=== PATIENT | male | born 1970 | race Caucasian/White ===

== ENCOUNTER 2017-06-13 11:40 | Inpatient (IN) | payer OTHER ==
[2017-06-13 11:57] VITALS: BMI 24.1
--- NOTE | 2017-06-13 13:38 | HP ---
CIWA Score - CIWA Score Nausea/Vomitin Muscle Tremors: 3 Anxiety: 3 Agitation: 3 Paroxysmal Sweats: 2 Orientation: 0-Oriented Tacttile Disturbances: 2-Mild Itch/Numbness/Burn Auditory Disturbances: 2-Mild Harshness/Frighten Visual Disturbances: 0-None Headache: 2-Mild CIWA-Ar Total Score: 20 Admission ROS BHS - HPI Chief Complaint: i need help to stop drinking alcohol and cocaine Allergies/Adverse Reactions: Allergies Allergy/AdvReac Type Severity Reaction Status Date / Time No Known Drug Allergies Allergy Verified 06/13/17 12:51 nuts Allergy Intermediate Difficulty Uncoded 06/13/17 12:51 Breathing tomato sauce Allergy Intermediate Difficulty Uncoded 06/13/17 12:51 Breathing History of Present Illness: this 47 years old male with alcohol and ccoaine dependence,seeking detox, withdrawal symptom,last treatment 2009 [facility] seizure last 1980 syncope alcohol related nicotine dependence weight loss bipolar disorder,anxiety,depression,insomnia longest period of sobriety 10 years Exam Limitations: No Limitations - Ebola screening Have you been sick,other than usual withdrawal symptoms: No - Review of Systems Constitutional: Loss of Appetite, Malaise, Night Sweats, Changes in sleep, Weakness, Unintentional Wgt. Loss EENT: reports: Nose Congestion Respiratory: reports: No Symptoms reported Cardiac: reports: No Symptoms Reported GI: reports: Nausea, Vomiting, Abdominal cramping : reports: No Symptoms Reported Musculoskeletal: reports: Muscle Pain Integumentary: reports: Dryness Neuro: reports: Headache, Tremors Endocrine: reports: No Symptoms Reported Hematology: reports: No Symptoms Reported Psychiatric: reports: Anxious, Depressed (bipolar disorder,insomnia), other Patient History - Patient Medical History Hx Anemia: No Hx Asthma: No Hx Chronic Obstructive Pulmonary Disease (COPD): No Hx Cancer: No Hx Cardiac Disorders: No Hx Congestive Heart Failure: No Hx Hypertension: No Hx Hypercholesterolemia: No Hx Pacemaker: No HX Cerebrovascular Accident: No Hx Seizures: No Hx Dementia: No Hx Diabetes: No Hx Gastrointestinal Disorders: No Hx Liver Disease: No Hx Genitourinary Disorders: No Hx Sexually Transmitted Disorders: No Hx Renal Disease (ESRD): No Hx Thyroid Disease: No Hx Human Immunodeficiency Virus (HIV): Yes (since 2009) Hx Hepatitis C: No Hx Depression: No Hx Suicide Attempt: No Hx Bipolar Disorder: Yes Hx Schizophrenia: No Other Medical History: anxiety,depression,insomnia,no homicidal,no suicidal - Patient Surgical History Past Surgical History: No - PPD History Previous Implant?: Yes Documented Results: Negative w/proof Implanted On Prior R Admission?: No PPD to be Administered?: No - Smoking Cessation Smoking history: Current every day smoker Have you smoked in the past 12 months: Yes Aproximately how many cigarettes per day: 10 Hx Chewing Tobacco Use: No Initiated information on smoking cessation: Yes 'Breaking Loose' booklet given: 06/13/17 - Substance & Tx. History Hx Alcohol Use: Yes Hx Substance Use: Yes Substance Use Type: Alcohol, Cocaine Hx Substance Use Treatment: Yes (last treatment in 2009) - Substances Abused Alcohol Route: Oral Frequency: Daily Amount used: vodka(2/)/beer(-2 6 pks-24 oz cans) Age of first use: 11 Date of Last Use: 06/13/17 Cocaine Route: Inhalation Frequency: 3-6 times per week Amount used: $30 Age of first use: 27 Date of Last Use: 06/10/17 Family Disease History - Family Disease History Family Disease History: Other: Mother (alcohol,) Admission Physical Exam BHS - Vital Signs Vital Signs: Vital Signs - 24 hr 06/13/17 11:53 Temperature 97 F L Pulse Rate 90 Respiratory 18 Rate Blood Pressure 121/65 - Physical General Appearance: Yes: Moderate Distress HEENTM: Yes: Normal ENT Inspection, CHAO, Pharynx Normal Respiratory: Yes: Lungs Clear, Normal Breath Sounds, No Respiratory Distress Neck: Yes: Within Normal Limits Breast: Yes: Within Normal Limits Cardiology: Yes: Within Normal Limits, Regular Rhythm, Regular Rate, S1, S2 Abdominal: Yes: Within Normal Limits, Normal Bowel Sounds, Non Tender, Flat, Soft Genitourinary: Yes: Within Normal Limits Back: Yes: Normal Inspection, Muscle Spasm Musculoskeletal: Yes: Back pain, Muscle Pain Extremities: Yes: Tremors 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 (7) Insomnia Current Visit: Yes Status: Acute Cleared for Admission BHS - Detox or Rehab [facility] Level of Care: Medically Managed Detox Regimen/Protocol: Librium BHS Breath Alcohol Content Breath Alcohol Content: 0.117 Urine Drug Screen - Results Drug Screen Negative: No Urine Drug Screen Results: JUAN F-Cocaine
[2017-06-13] MEDS ORDERED: hydrOXYzine PAMOATE 50 MG CAPSULE (FP) PO PRN (13:51)
[2017-06-13] MEDS ORDERED: MAGNESIUM HYDROX 2400MG/30ML ORAL SUSPENSION 30 ML CUP PO PRN (13:51)
[2017-06-13] MEDS ORDERED: guaiFENesin/D-METHORPHAN HB 10 ML UNIT-DOSE CUPS PO PRN (13:51)
[2017-06-13] MEDS ORDERED: MAG HYDROX/AL HYDROX/SIMETH 30 ML UNIT-DOSE CUP PO PRN (13:51)
[2017-06-13] MEDS ORDERED: MENTHOL/PHENOL 1 EACH UD MM PRN (13:51)
[2017-06-13] MEDS ORDERED: IBUPROFEN 400 MG TABLET (FP) PO PRN (13:51)
[2017-06-13] MEDS ORDERED: ACETAMINOPHEN 325 MG TABLET (FP) PO PRN (13:51)
[2017-06-13] MEDS ORDERED: LOPERAMIDE HCL 2 MG CAPSULE PO PRN (13:51)
[2017-06-13] MEDS ORDERED: MAGNESIUM CITRATE 300 ML BOTTLE PO PRN (13:51)
[2017-06-13] MEDS ORDERED: P-EPHED 60MG/TRIPROLIDI 2.5MG TABLET PO PRN (13:51)
[2017-06-13] MEDS ORDERED: chlordiazePOXIDE HCL 25 MG CAPSULE PO ONE (14:09)
[2017-06-13] MEDS: NICOTINE 21 MG/24 HOURS TOPICAL PATCH TD SCH (15:26)
--- NOTE | 2017-06-13 16:49 | CONSULT ---
[facility] Psychiatric Consult - Data Date of interview: 06/13/17 Admission source: [facility] Identifying data: Pt. 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 This is patient's first admission to [facility]. Pt. admitted to [facility] for alcohol and cocaine dependence. Substance Abuse History: Following information confirmed with Mr. Gabriel: Smoking Cessation. Smoking history: Current every day smoker. Have you smoked in the past 12 months: Yes. Aproximately how many cigarettes per day: 10. Hx Chewing Tobacco Use: No. Initiated information on smoking cessation: Yes. ' Breaking Loose' booklet given: 06/13/17. - Substance & Tx. History. Hx Alcohol Use: Yes. Hx Substance Use: Yes. Substance Use Type: Alcohol, Cocaine. Hx Substance Use Treatment: Yes (last treatment in 2009) Medical History: HIV Psychiatric History: Pt. denies h/o psychatric hospitalization. Reports OPC at [facility] for 8 years. Pt. is currently prescribed seroquel 200mg, Zoloft 100mg and trazodone 150mg but reports nonadherence to his medications. States his diagnosis are Bipolar disorder, anxiety, and schizophrenia. Pt. denies h/o suicide attempt. Pt. denies suicidal and homicidal ideation. Pt. requesting trazodone for insomnia. Physical/Sexual Abuse/Trauma History: Denies. Mental Status Exam - Mental Status Exam Alert and Oriented to: Time, Place, Person Cognitive Function: Good Patient Appearance: Unkempt Mood: Anxious Affect: Normal Range Patient Behavior: Talkative, Cooperative Speech Pattern: Pressured Voice Loudness: Normal Thought Process: Goal Oriented Thought Disorder: Not Present Hallucinations: Denies Suicidal Ideation: Denies Homicidal Ideation: Denies Insight/Judgement: Poor Sleep: Poorly Appetite: Fair Muscle strength/Tone: Normal Gait/Station: Normal Psychiatric Findings - Problem List ([place] 1, 2,3) (1) Alcohol dependence with uncomplicated withdrawal Current Visit: Yes Status: Acute (2) Cocaine dependence Current Visit: Yes Status: Acute (3) Insomnia Current Visit: Yes Status: Acute (4) Nicotine dependence Current Visit: Yes Status: Acute (5) Schizophrenia Current Visit: No Status: Chronic Comment: Self reports. (6) Bipolar disorder Current Visit: No Status: Chronic Comment: Self reports. - Initial Treatment Plan Initial Treatment Plan: Psychoeducation provided. Detoxification in progress. Trazodone 50mg qhs ordered. Benefits and side effects (priapism) discussed. Verbal consent given. Will continue to monitor.
[2017-06-13] MEDS: chlordiazePOXIDE HCL 25 MG CAPSULE PO SCH ×2 (17:37→22:18)
[2017-06-13] MEDS: THIAMINE HCL 100 MG TABLET (FP) PO SCH (22:18)
[2017-06-13] MEDS: traZODone HCL 50 MG TABLET (FP) PO SCH (22:18)
[2017-06-13 23:17] LABS: URINE APPEARANCE CLEAR; URINE BILIRUBIN NEGATIVE (NEGATIVE); URINE BLOOD 1+ (NEGATIVE); URINE COLOR COLORLESS; URINE GLUCOSE (UA) NEGATIVE (NEGATIVE); URINE KETONE NEGATIVE (NEGATIVE); URINE LEUK ESTERASE NEGATIVE (NEGATIVE); URINE NITRITE NEGATIVE (NEGATIVE); URINE PROTEIN NEGATIVE (NEGATIVE); URINE UROBILINOGEN NEGATIVE mg/dL (0.2-1.0)
[2017-06-14] MEDS: chlordiazePOXIDE HCL 25 MG CAPSULE PO SCH ×4 (05:15→22:17)
[2017-06-14] MEDS ORDERED: SERTRALINE HCL 50 MG TABLET (FP) PO SCH (10:00)
[2017-06-14 10:02] LABS: HEMATOCRIT 46.5 % (35.4-49); HEMOGLOBIN 15.1 GM/dL (11.7-16.9); MCH 30.6 pg (25.7-33.7); MCHC 32.5 g/dl (32.0-35.9); MEAN CELL VOLUME 93.9 fl (80-96); MEAN PLT VOLUME 8.2 fl (7.5-11.1); PLATELET COUNT 306 K/MM3 (134-434); RBC 4.95 M/mm3 (4.00-5.60); RDW 13.6 % (11.9-15.9); WHITE BLOOD COUNT 8.8 K/mm3 (4.0-10.0)
[2017-06-14] MEDS: PRENATAL VITAMINS W/ FOLIC ACID TABLET (FP) PO SCH (10:14)
[2017-06-14] MEDS: NICOTINE 21 MG/24 HOURS TOPICAL PATCH TD SCH (10:15)
[2017-06-14] MEDS: PATIENT'S OWN MEDICATION (NON-FORMULARY) (Emtricitabine/Tenofov Alafenam [Descovy 200-25 M PO SCH (10:15)
[2017-06-14 10:18] LABS: ALBUMIN 4.3 g/dl (3.4-5.0); ANION GAP 14 (8-16); BLOOD UREA NITROGEN 7 mg/dL (7-18); CALCIUM 9.5 mg/dL (8.5-10.1); CHLORIDE 104 mmol/L (98-107); CO2 23 mmol/L (21-32); CREATININE 0.8 mg/dL (0.7-1.3); GLUCOSE,RANDOM 93 mg/dL (74-106); POTASSIUM 4.3 mmol/L (3.5-5.1); SGOT/AST 35 U/L (15-37); SGPT/ALT 37 U/L (12-78); SODIUM 141 mmol/L (136-145)
[2017-06-14 10:20] LABS: ALK PHOS 63 U/L (45-117); BILIRUBIN,TOTAL 0.4 mg/dL (0.2-1.0); TOT PROT 8.4 g/dl (6.4-8.2)
--- NOTE | 2017-06-14 10:56 | PN ---
[facility] CIWA - CIWA Score Nausea/Vomitin-No Nausea/No Vomiting Muscle Tremors: 4-Moderate,w/Arms Extend Anxiety: 4-Mod. Anxious/Guarded Agitation: 4-Moderately Restless Paroxysmal Sweats: 1-Minimal Palms Moist Orientation: 0-Oriented Tacttile Disturbances: 3-Moderate Itch/Numb/Burn Auditory Disturbances: 0-None Visual Disturbances: 0-None Headache: 0-None Present CIWA-Ar Total Score: 16 BHS Progress Note (SOAP) Subjective: ANXIETY,SWEATS,FATIGUE. Objective: 06/14/17 11:03 Vital Signs Temperature 97.2 F L 06/14/17 09:50 Pulse Rate 88 06/14/17 09:50 Respiratory Rate 18 06/14/17 09:50 Blood Pressure 117/75 06/14/17 09:50 O2 Sat by Pulse Oximetry (%) Laboratory Last Values WBC 8.8 K/mm3 (4.0-10.0) 06/14/17 05:45 RBC 4.95 M/mm3 (4.00-5.60) 06/14/17 05:45 Hgb 15.1 GM/dL (11.7-16.9) 06/14/17 05:45 Hct 46.5 % (35.4-49) 06/14/17 05:45 MCV 93.9 fl (80-96) 06/14/17 05:45 MCH 30.6 pg (25.7-33.7) 06/14/17 05:45 MCHC 32.5 g/dl (32.0-35.9) 06/14/17 05:45 RDW 13.6 % (11.9-15.9) 06/14/17 05:45 Plt Count 306 K/MM3 (134-434) 06/14/17 05:45 MPV 8.2 fl (7.5-11.1) 06/14/17 05:45 Sodium 141 mmol/L (136-145) 06/14/17 05:45 Potassium 4.3 mmol/L (3.5-5.1) 06/14/17 05:45 Chloride 104 mmol/L (98-107) 06/14/17 05:45 Carbon Dioxide 23 mmol/L (21-32) 06/14/17 05:45 Anion Gap 14 (8-16) 06/14/17 05:45 BUN 7 mg/dL (7-18) 06/14/17 05:45 Creatinine 0.8 mg/dL (0.7-1.3) 06/14/17 05:45 Creat Clearance w eGFR > 60 (>60) 06/14/17 05:45 Random Glucose 93 mg/dL (74-106) 06/14/17 05:45 Calcium 9.5 mg/dL (8.5-10.1) 06/14/17 05:45 Total Bilirubin 0.4 mg/dL (0.2-1.0) 06/14/17 05:45 AST 35 U/L (15-37) 06/14/17 05:45 ALT 37 U/L (12-78) 06/14/17 05:45 Alkaline Phosphatase 63 U/L (45-117) 06/14/17 05:45 Total Protein 8.4 g/dl (6.4-8.2) H 06/14/17 05:45 Albumin 4.3 g/dl (3.4-5.0) 06/14/17 05:45 Urine Color Colorless 06/13/17 21:00 Urine Appearance Clear 06/13/17 21:00 Urine pH 6.0 (5.0-8.0) 06/13/17 21:00 Ur Specific [place] 1.002 (1.001-1.035) 06/13/17 21:00 Urine Protein Negative (NEGATIVE) 06/13/17 21:00 Urine Glucose (UA) Negative (NEGATIVE) 06/13/17 21:00 Urine Ketones Negative (NEGATIVE) 06/13/17 21:00 Urine Blood 1+ (NEGATIVE) H 06/13/17 21:00 Urine Nitrite Negative (NEGATIVE) 06/13/17 21:00 Urine Bilirubin Negative (NEGATIVE) 06/13/17 21:00 Urine Urobilinogen Negative mg/dL (0.2-1.0) 06/13/17 21:00 Ur Leukocyte Esterase Negative (NEGATIVE) 06/13/17 21:00 Urine WBC (Auto) None /hpf (3-5) 06/13/17 21:00 Urine RBC (Auto) <1 /hpf (0-3) 06/13/17 21:00 Assessment: 06/14/17 11:03 WITHDRAWAL SX Plan: CONTINUE DETOX
[2017-06-14] MEDS: chlordiazePOXIDE HCL 25 MG CAPSULE PO PRN (15:15)
[2017-06-14] MEDS: traZODone HCL 50 MG TABLET (FP) PO SCH (22:16)
[2017-06-14] MEDS: THIAMINE HCL 100 MG TABLET (FP) PO SCH (22:17)
[2017-06-15] MEDS: chlordiazePOXIDE HCL 25 MG CAPSULE PO SCH ×2 (05:50→10:20)
[2017-06-15] MEDS: PRENATAL VITAMINS W/ FOLIC ACID TABLET (FP) PO SCH (10:19)
[2017-06-15] MEDS: PATIENT'S OWN MEDICATION (NON-FORMULARY) (Emtricitabine/Tenofov Alafenam [Descovy 200-25 M PO SCH (10:19)
[2017-06-15] MEDS: NICOTINE 21 MG/24 HOURS TOPICAL PATCH TD SCH (10:19)
--- NOTE | 2017-06-15 10:49 | PN ---
S CIWA - CIWA Score Nausea/Vomitin Muscle Tremors: 3 Anxiety: 2 Agitation: 2 Paroxysmal Sweats: 3 Orientation: 0-Oriented Tacttile Disturbances: 1-Very Mild Itch/Numbness Auditory Disturbances: 1-Very Mild Visual Disturbances: 1-Very Mild Sensitivity Headache: 2-Mild CIWA-Ar Total Score: 18 BHS Progress Note (SOAP) Subjective: Shakes, sweats, chills,diarrhea, back pain Objective: 06/15/17 10:45 Vital Signs - 8 hr 06/15/17 06/15/17 06/15/17 03:27 06:24 09:10 Temperature 97.3 F L 96.9 F L Pulse Rate 67 79 Respiratory 18 18 18 Rate Blood Pressure 114/68 93/55 Laboratory Last Values WBC 8.8 K/mm3 (4.0-10.0) 06/14/17 05:45 RBC 4.95 M/mm3 (4.00-5.60) 06/14/17 05:45 Hgb 15.1 GM/dL (11.7-16.9) 06/14/17 05:45 Hct 46.5 % (35.4-49) 06/14/17 05:45 MCV 93.9 fl (80-96) 06/14/17 05:45 MCH 30.6 pg (25.7-33.7) 06/14/17 05:45 MCHC 32.5 g/dl (32.0-35.9) 06/14/17 05:45 RDW 13.6 % (11.9-15.9) 06/14/17 05:45 Plt Count 306 K/MM3 (134-434) 06/14/17 05:45 MPV 8.2 fl (7.5-11.1) 06/14/17 05:45 Sodium 141 mmol/L (136-145) 06/14/17 05:45 Potassium 4.3 mmol/L (3.5-5.1) 06/14/17 05:45 Chloride 104 mmol/L (98-107) 06/14/17 05:45 Carbon Dioxide 23 mmol/L (21-32) 06/14/17 05:45 Anion Gap 14 (8-16) 06/14/17 05:45 BUN 7 mg/dL (7-18) 06/14/17 05:45 Creatinine 0.8 mg/dL (0.7-1.3) 06/14/17 05:45 Creat Clearance w eGFR > 60 (>60) 06/14/17 05:45 Random Glucose 93 mg/dL (74-106) 06/14/17 05:45 Calcium 9.5 mg/dL (8.5-10.1) 06/14/17 05:45 Total Bilirubin 0.4 mg/dL (0.2-1.0) 06/14/17 05:45 AST 35 U/L (15-37) 06/14/17 05:45 ALT 37 U/L (12-78) 06/14/17 05:45 Alkaline Phosphatase 63 U/L (45-117) 06/14/17 05:45 Total Protein 8.4 g/dl (6.4-8.2) H 06/14/17 05:45 Albumin 4.3 g/dl (3.4-5.0) 06/14/17 05:45 Urine Color Colorless 06/13/17 21:00 Urine Appearance Clear 06/13/17 21:00 Urine pH 6.0 (5.0-8.0) 06/13/17 21:00 Ur Specific [place] 1.002 (1.001-1.035) 06/13/17 21:00 Urine Protein Negative (NEGATIVE) 06/13/17 21:00 Urine Glucose (UA) Negative (NEGATIVE) 06/13/17 21:00 Urine Ketones Negative (NEGATIVE) 06/13/17 21:00 Urine Blood 1+ (NEGATIVE) H 06/13/17 21:00 Urine Nitrite Negative (NEGATIVE) 06/13/17 21:00 Urine Bilirubin Negative (NEGATIVE) 06/13/17 21:00 Urine Urobilinogen Negative mg/dL (0.2-1.0) 06/13/17 21:00 Ur Leukocyte Esterase Negative (NEGATIVE) 06/13/17 21:00 Urine WBC (Auto) None /hpf (3-5) 06/13/17 21:00 Urine RBC (Auto) <1 /hpf (0-3) 06/13/17 21:00 RPR Titer Nonreactive (NONREACTIVE) 06/14/17 05:45 Labs noted Assessment: 06/15/17 10:46 Withdrawal sx Plan: Continue detox
[2017-06-15] MEDS: chlordiazePOXIDE HCL 25 MG CAPSULE PO PRN (14:27)
--- NOTE | 2017-06-15 17:12 | EKG ---
Test Reason : Blood Pressure : / mmHG Vent. Rate : 085 BPM Atrial Rate : 085 BPM P-R Int : 140 ms QRS Dur : 090 ms QT Int : 366 ms P-R-T Axes : 044 042 052 degrees QTc Int : 435 ms NORMAL SINUS RHYTHM POSSIBLE LEFT ATRIAL ENLARGEMENT BORDERLINE ECG NO PREVIOUS ECGS AVAILABLE Confirmed by KRYS ENRIQUEZ MD ([id number]) on 06/15/2017 5:12:15 PM Referred By: Confirmed By:KRYS ENRIQUEZ MD
[2017-06-15] MEDS: chlordiazePOXIDE 5 MG CAPSULE PO SCH ×2 (17:44→22:23)
[2017-06-15] MEDS: CLOTRIMAZOLE 10 MG TROCHE (FP) PO SCH (22:23)
[2017-06-15] MEDS: THIAMINE HCL 100 MG TABLET (FP) PO SCH (22:23)
[2017-06-15] MEDS: traZODone HCL 50 MG TABLET (FP) PO SCH (22:23)
[2017-06-16] MEDS: CLOTRIMAZOLE 10 MG TROCHE (FP) PO SCH ×5 (06:04→22:18)
[2017-06-16] MEDS: chlordiazePOXIDE 5 MG CAPSULE PO SCH ×2 (06:04→10:12)
[2017-06-16] MEDS: PATIENT'S OWN MEDICATION (NON-FORMULARY) (Emtricitabine/Tenofov Alafenam [Descovy 200-25 M PO SCH (10:11)
[2017-06-16] MEDS: PRENATAL VITAMINS W/ FOLIC ACID TABLET (FP) PO SCH (10:12)
[2017-06-16] MEDS: NICOTINE 21 MG/24 HOURS TOPICAL PATCH TD SCH (10:13)
--- NOTE | 2017-06-16 14:38 | PN ---
BHS Progress Note (SOAP) Subjective: Back pain sweats tremors Objective: 06/16/17 14:37 no acute distress Laboratory Last Values WBC 8.8 K/mm3 (4.0-10.0) 06/14/17 05:45 RBC 4.95 M/mm3 (4.00-5.60) 06/14/17 05:45 Hgb 15.1 GM/dL (11.7-16.9) 06/14/17 05:45 Hct 46.5 % (35.4-49) 06/14/17 05:45 MCV 93.9 fl (80-96) 06/14/17 05:45 MCH 30.6 pg (25.7-33.7) 06/14/17 05:45 MCHC 32.5 g/dl (32.0-35.9) 06/14/17 05:45 RDW 13.6 % (11.9-15.9) 06/14/17 05:45 Plt Count 306 K/MM3 (134-434) 06/14/17 05:45 MPV 8.2 fl (7.5-11.1) 06/14/17 05:45 Sodium 141 mmol/L (136-145) 06/14/17 05:45 Potassium 4.3 mmol/L (3.5-5.1) 06/14/17 05:45 Chloride 104 mmol/L (98-107) 06/14/17 05:45 Carbon Dioxide 23 mmol/L (21-32) 06/14/17 05:45 Anion Gap 14 (8-16) 06/14/17 05:45 BUN 7 mg/dL (7-18) 06/14/17 05:45 Creatinine 0.8 mg/dL (0.7-1.3) 06/14/17 05:45 Creat Clearance w eGFR > 60 (>60) 06/14/17 05:45 Random Glucose 93 mg/dL (74-106) 06/14/17 05:45 Calcium 9.5 mg/dL (8.5-10.1) 06/14/17 05:45 Total Bilirubin 0.4 mg/dL (0.2-1.0) 06/14/17 05:45 AST 35 U/L (15-37) 06/14/17 05:45 ALT 37 U/L (12-78) 06/14/17 05:45 Alkaline Phosphatase 63 U/L (45-117) 06/14/17 05:45 Total Protein 8.4 g/dl (6.4-8.2) H 06/14/17 05:45 Albumin 4.3 g/dl (3.4-5.0) 06/14/17 05:45 Urine Color Colorless 06/13/17 21:00 Urine Appearance Clear 06/13/17 21:00 Urine pH 6.0 (5.0-8.0) 06/13/17 21:00 Ur Specific [place] 1.002 (1.001-1.035) 06/13/17 21:00 Urine Protein Negative (NEGATIVE) 06/13/17 21:00 Urine Glucose (UA) Negative (NEGATIVE) 06/13/17 21:00 Urine Ketones Negative (NEGATIVE) 06/13/17 21:00 Urine Blood 1+ (NEGATIVE) H 06/13/17 21:00 Urine Nitrite Negative (NEGATIVE) 06/13/17 21:00 Urine Bilirubin Negative (NEGATIVE) 06/13/17 21:00 Urine Urobilinogen Negative mg/dL (0.2-1.0) 06/13/17 21:00 Ur Leukocyte Esterase Negative (NEGATIVE) 06/13/17 21:00 Urine WBC (Auto) None /hpf (3-5) 06/13/17 21:00 Urine RBC (Auto) <1 /hpf (0-3) 06/13/17 21:00 RPR Titer Nonreactive (NONREACTIVE) 06/14/17 05:45 Assessment: 06/16/17 14:37 withdrawal symptoms Plan: continue detox
[2017-06-16] MEDS: chlordiazePOXIDE HCL 10 MG CAPSULE PO SCH ×2 (17:23→22:18)
[2017-06-16] MEDS: traZODone HCL 50 MG TABLET (FP) PO SCH (22:18)
[2017-06-16] MEDS: THIAMINE HCL 100 MG TABLET (FP) PO SCH (22:18)
[2017-06-17] MEDS: chlordiazePOXIDE HCL 10 MG CAPSULE PO SCH ×2 (05:21→10:07)
[2017-06-17] MEDS: CLOTRIMAZOLE 10 MG TROCHE (FP) PO SCH ×3 (05:21→13:01)
[2017-06-17 09:22] VITALS: BP 108/70; PULSE 83; TEMP 96.3
[2017-06-17] MEDS: PRENATAL VITAMINS W/ FOLIC ACID TABLET (FP) PO SCH (10:05)
[2017-06-17] MEDS: PATIENT'S OWN MEDICATION (NON-FORMULARY) (Emtricitabine/Tenofov Alafenam [Descovy 200-25 M PO SCH (10:06)
[2017-06-17] MEDS: NICOTINE 21 MG/24 HOURS TOPICAL PATCH TD SCH (10:07)
--- NOTE | 2017-06-17 12:25 | DS ---
[facility] Detox Discharge Summary Admission Date: 06/13/17 Discharge Date: 06/17/17 - History Present History: Alcohol Dependence, Cocaine Dependence Additional Comments: DETOX COMPLETED. ALERT O X 3. REFERRED TO REHAB 3 [facility] TODAY. Pertinent Past History: SEE DX BELOW. - Physical Exam Results Vital Signs: Vital Signs Temperature 96.3 F L 06/17/17 09:21 Pulse Rate 83 06/17/17 09:21 Respiratory Rate 18 06/17/17 09:21 Blood Pressure 108/70 06/17/17 09:21 O2 Sat by Pulse Oximetry (%) Pertinent Admission Physical Exam Findings: WITHDRAWAL SX Laboratory Last Values WBC 8.8 K/mm3 (4.0-10.0) 06/14/17 05:45 RBC 4.95 M/mm3 (4.00-5.60) 06/14/17 05:45 Hgb 15.1 GM/dL (11.7-16.9) 06/14/17 05:45 Hct 46.5 % (35.4-49) 06/14/17 05:45 MCV 93.9 fl (80-96) 06/14/17 05:45 MCH 30.6 pg (25.7-33.7) 06/14/17 05:45 MCHC 32.5 g/dl (32.0-35.9) 06/14/17 05:45 RDW 13.6 % (11.9-15.9) 06/14/17 05:45 Plt Count 306 K/MM3 (134-434) 06/14/17 05:45 MPV 8.2 fl (7.5-11.1) 06/14/17 05:45 Sodium 141 mmol/L (136-145) 06/14/17 05:45 Potassium 4.3 mmol/L (3.5-5.1) 06/14/17 05:45 Chloride 104 mmol/L (98-107) 06/14/17 05:45 Carbon Dioxide 23 mmol/L (21-32) 06/14/17 05:45 Anion Gap 14 (8-16) 06/14/17 05:45 BUN 7 mg/dL (7-18) 06/14/17 05:45 Creatinine 0.8 mg/dL (0.7-1.3) 06/14/17 05:45 Creat Clearance w eGFR > 60 (>60) 06/14/17 05:45 Random Glucose 93 mg/dL (74-106) 06/14/17 05:45 Calcium 9.5 mg/dL (8.5-10.1) 06/14/17 05:45 Total Bilirubin 0.4 mg/dL (0.2-1.0) 06/14/17 05:45 AST 35 U/L (15-37) 06/14/17 05:45 ALT 37 U/L (12-78) 06/14/17 05:45 Alkaline Phosphatase 63 U/L (45-117) 06/14/17 05:45 Total Protein 8.4 g/dl (6.4-8.2) H 06/14/17 05:45 Albumin 4.3 g/dl (3.4-5.0) 06/14/17 05:45 Urine Color Colorless 06/13/17 21:00 Urine Appearance Clear 06/13/17 21:00 Urine pH 6.0 (5.0-8.0) 06/13/17 21:00 Ur Specific [place] 1.002 (1.001-1.035) 06/13/17 21:00 Urine Protein Negative (NEGATIVE) 06/13/17 21:00 Urine Glucose (UA) Negative (NEGATIVE) 06/13/17 21:00 Urine Ketones Negative (NEGATIVE) 06/13/17 21:00 Urine Blood 1+ (NEGATIVE) H 06/13/17 21:00 Urine Nitrite Negative (NEGATIVE) 06/13/17 21:00 Urine Bilirubin Negative (NEGATIVE) 06/13/17 21:00 Urine Urobilinogen Negative mg/dL (0.2-1.0) 06/13/17 21:00 Ur Leukocyte Esterase Negative (NEGATIVE) 06/13/17 21:00 Urine WBC (Auto) None /hpf (3-5) 06/13/17 21:00 Urine RBC (Auto) <1 /hpf (0-3) 06/13/17 21:00 RPR Titer Nonreactive (NONREACTIVE) 06/14/17 05:45 - Treatment Hospital Course: Detox Protocol Followed, Detoxed Safely, Responded well, Discharged Condition Good, Rehab Referral Accepted - Medication Discharge Medications: Ambulatory Orders Emtricitabine/Tenofov Alafenam [Descovy 200-25 mg Tablet (Nf)] 1 each PO DAILY 06/13/17 Clotrimazole [Mycelex -] 10 mg PO 5XD #20 isaiah 06/17/17 - Diagnosis (1) Alcohol dependence with uncomplicated withdrawal Status: Acute (2) Cocaine dependence Status: Acute Qualifiers: Substance use status: uncomplicated Qualified Code(s): F14.20 - Cocaine dependence, uncomplicated (3) HIV (human immunodeficiency virus infection) Status: Chronic (4) Nicotine dependence Status: Acute Qualifiers: Nicotine product type: cigarettes Substance use status: uncomplicated Qualified Code(s): F17.210 - Nicotine dependence, cigarettes, uncomplicated (5) Seizure Status: Chronic (6) Weight loss Status: Acute - AMA Did Patient Leave Against Medical Advice: No
== END 2017-06-17 13:06 | disposition other institution (70) | DRG 774 ==
LOC: YASAS 11:40 → Y3N 14:03
PROVIDERS: ADMIT Internal Medicine; ATTEND Internal Medicine
PROC: HZ2ZZZZ Detoxification Services for Substance Abuse Treatment (ICD-10-PCS; principal; 2017-06-13)
DX: F14.20 Cocaine dependence, uncomplicated (principal); F17.210 Nicotine dependence, cigarettes, uncomplicated; F31.9 Bipolar disorder, unspecified; F20.9 Schizophrenia, unspecified; Z21 Asymptomatic human immunodeficiency virus [HIV] infection status; G47.00 Insomnia, unspecified; Z86.69 Personal history of other diseases of the nervous system and sense organs; Z87.898 Personal history of other specified conditions; Z91.010 Allergy to peanuts
CPT/HCPCS: 36415; 80053; 81003; 81015; 85027; 86593; 93005; 93010

== ENCOUNTER 2017-06-17 13:23 | Inpatient (IN) | payer OTHER ==
[2017-06-17] MEDS ORDERED: LOPERAMIDE HCL 2 MG CAPSULE PO PRN (16:26)
[2017-06-17] MEDS ORDERED: MAGNESIUM HYDROX 2400MG/30ML ORAL SUSPENSION 30 ML CUP PO PRN (16:26)
[2017-06-17] MEDS ORDERED: MENTHOL/PHENOL 1 EACH UD MM PRN (16:26)
[2017-06-17] MEDS ORDERED: MAGNESIUM CITRATE 300 ML BOTTLE PO PRN (16:26)
[2017-06-17] MEDS ORDERED: NICOTINE POLACRILEX 2 MG GUM BUC PRN (16:26)
[2017-06-17] MEDS ORDERED: guaiFENesin/D-METHORPHAN HB 10 ML UNIT-DOSE CUPS PO PRN (16:26)
[2017-06-17] MEDS ORDERED: P-EPHED 60MG/TRIPROLIDI 2.5MG TABLET PO PRN (16:26)
[2017-06-17] MEDS ORDERED: MAG HYDROX/AL HYDROX/SIMETH 30 ML UNIT-DOSE CUP PO PRN (16:26)
--- NOTE | 2017-06-17 16:26 | HP ---
[facility] Re[facility] Assess/Revision - Admission History Admitted to Rehab from: [facility] Date of Admission to Rehab: 06/17/17 - Findings Detox History & Physical reviewed: Yes Concur with findings: Yes Comments/Additional Findings: TRANSFERRED FROM DETOX TO REHAB ADMISSION PER PROTOCOL
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
[2017-06-18] MEDS: PRENATAL VITAMINS W/ FOLIC ACID TABLET (FP) PO SCH (09:39)
[2017-06-18] MEDS ORDERED: EMTRICITABINE/TENOFOV ALAFENAM (DESCOVY) TABLET PO SCH (10:00)
[2017-06-18] MEDS: ACETAMINOPHEN 325 MG TABLET (FP) PO PRN (15:09)
[2017-06-18] MEDS: THIAMINE HCL 100 MG TABLET (FP) PO SCH ×2 (18:38→21:33)
[2017-06-18] MEDS: EMTRICITABINE/TENOFOV ALAFENAM (DESCOVY) TABLET PO SCH (18:39)
[2017-06-18] MEDS: SERTRALINE HCL 50 MG TABLET (FP) PO SCH (18:39)
[2017-06-18] MEDS: traZODone HCL 50 MG TABLET (FP) PO SCH (21:33)
[2017-06-19] MEDS: SERTRALINE HCL 50 MG TABLET (FP) PO SCH (10:00)
[2017-06-19] MEDS: PRENATAL VITAMINS W/ FOLIC ACID TABLET (FP) PO SCH (10:00)
[2017-06-19] MEDS: NICOTINE 14 MG/24 HOURS TOPICAL PATCH TD PRN (10:01)
[2017-06-19] MEDS: EMTRICITABINE/TENOFOV ALAFENAM (DESCOVY) TABLET PO SCH (10:01)
[2017-06-19] MEDS: CLOTRIMAZOLE 10 MG TROCHE (FP) PO SCH ×3 (14:49→21:43)
[2017-06-19] MEDS ORDERED: NYSTATIN 500,000 UNITS/5 ML SUSPENSION PO SCH (18:00)
[2017-06-19] MEDS: CARBAMIDE PEROXIDE 6.5% OTIC 15 ML BOTTLE AD SCH (21:42)
[2017-06-19] MEDS: traZODone HCL 50 MG TABLET (FP) PO SCH (21:44)
[2017-06-19] MEDS: THIAMINE HCL 100 MG TABLET (FP) PO SCH (22:18)
[2017-06-20] MEDS: CLOTRIMAZOLE 10 MG TROCHE (FP) PO SCH ×5 (06:17→21:10)
[2017-06-20] MEDS: PRENATAL VITAMINS W/ FOLIC ACID TABLET (FP) PO SCH (10:05)
[2017-06-20] MEDS: SERTRALINE HCL 50 MG TABLET (FP) PO SCH (10:05)
[2017-06-20] MEDS: CARBAMIDE PEROXIDE 6.5% OTIC 15 ML BOTTLE AD SCH ×2 (10:06→21:10)
[2017-06-20] MEDS: EMTRICITABINE/TENOFOV ALAFENAM (DESCOVY) TABLET PO SCH (10:07)
[2017-06-20] MEDS: NICOTINE 14 MG/24 HOURS TOPICAL PATCH TD PRN (10:08)
[2017-06-20] MEDS: THIAMINE HCL 100 MG TABLET (FP) PO SCH (21:10)
[2017-06-20] MEDS: traZODone HCL 50 MG TABLET (FP) PO SCH (21:10)
[2017-06-21] MEDS: CLOTRIMAZOLE 10 MG TROCHE (FP) PO SCH ×5 (07:24→21:33)
[2017-06-21] MEDS: PRENATAL VITAMINS W/ FOLIC ACID TABLET (FP) PO SCH (10:14)
[2017-06-21] MEDS: EMTRICITABINE/TENOFOV ALAFENAM (DESCOVY) TABLET PO SCH (10:15)
[2017-06-21] MEDS: CARBAMIDE PEROXIDE 6.5% OTIC 15 ML BOTTLE AD SCH ×2 (10:15→21:31)
[2017-06-21] MEDS: SERTRALINE HCL 50 MG TABLET (FP) PO SCH (10:15)
[2017-06-21] MEDS: NICOTINE 14 MG/24 HOURS TOPICAL PATCH TD PRN (10:17)
[2017-06-21] MEDS: THIAMINE HCL 100 MG TABLET (FP) PO SCH (21:30)
[2017-06-21] MEDS: traZODone HCL 50 MG TABLET (FP) PO SCH (21:31)
[2017-06-22] MEDS: CLOTRIMAZOLE 10 MG TROCHE (FP) PO SCH ×5 (06:39→21:20)
[2017-06-22] MEDS: SERTRALINE HCL 50 MG TABLET (FP) PO SCH (10:04)
[2017-06-22] MEDS: EMTRICITABINE/TENOFOV ALAFENAM (DESCOVY) TABLET PO SCH (10:04)
[2017-06-22] MEDS: PRENATAL VITAMINS W/ FOLIC ACID TABLET (FP) PO SCH (10:04)
[2017-06-22] MEDS: CARBAMIDE PEROXIDE 6.5% OTIC 15 ML BOTTLE AD SCH ×2 (10:04→21:22)
[2017-06-22] MEDS: NICOTINE 14 MG/24 HOURS TOPICAL PATCH TD PRN (10:05)
[2017-06-22] MEDS: THIAMINE HCL 100 MG TABLET (FP) PO SCH (21:20)
[2017-06-22] MEDS: traZODone HCL 50 MG TABLET (FP) PO SCH (21:20)
[2017-06-23] MEDS: CLOTRIMAZOLE 10 MG TROCHE (FP) PO SCH ×5 (06:55→21:48)
[2017-06-23] MEDS: SERTRALINE HCL 50 MG TABLET (FP) PO SCH (09:55)
[2017-06-23] MEDS: EMTRICITABINE/TENOFOV ALAFENAM (DESCOVY) TABLET PO SCH (09:55)
[2017-06-23] MEDS: PRENATAL VITAMINS W/ FOLIC ACID TABLET (FP) PO SCH (09:55)
[2017-06-23] MEDS: NICOTINE 14 MG/24 HOURS TOPICAL PATCH TD PRN (09:56)
[2017-06-23] MEDS: CARBAMIDE PEROXIDE 6.5% OTIC 15 ML BOTTLE AD SCH ×2 (11:00→21:50)
[2017-06-23] MEDS: traZODone HCL 50 MG TABLET (FP) PO SCH (21:48)
[2017-06-23] MEDS: THIAMINE HCL 100 MG TABLET (FP) PO SCH (21:48)
[2017-06-24] MEDS: CLOTRIMAZOLE 10 MG TROCHE (FP) PO SCH ×6 (06:40→21:49)
[2017-06-24] MEDS: PRENATAL VITAMINS W/ FOLIC ACID TABLET (FP) PO SCH (09:54)
[2017-06-24] MEDS: EMTRICITABINE/TENOFOV ALAFENAM (DESCOVY) TABLET PO SCH (09:54)
[2017-06-24] MEDS: SERTRALINE HCL 50 MG TABLET (FP) PO SCH (09:54)
[2017-06-24] MEDS: CARBAMIDE PEROXIDE 6.5% OTIC 15 ML BOTTLE AD SCH ×2 (09:55→21:50)
[2017-06-24] MEDS: NICOTINE 14 MG/24 HOURS TOPICAL PATCH TD PRN (09:56)
[2017-06-24] MEDS: ACETAMINOPHEN 325 MG TABLET (FP) PO PRN (19:48)
[2017-06-24] MEDS: THIAMINE HCL 100 MG TABLET (FP) PO SCH (21:49)
[2017-06-24] MEDS: traZODone HCL 50 MG TABLET (FP) PO SCH (21:49)
[2017-06-25] MEDS: CLOTRIMAZOLE 10 MG TROCHE (FP) PO SCH ×5 (06:56→22:25)
[2017-06-25] MEDS: CARBAMIDE PEROXIDE 6.5% OTIC 15 ML BOTTLE AD SCH ×2 (10:04→21:15)
[2017-06-25] MEDS: PRENATAL VITAMINS W/ FOLIC ACID TABLET (FP) PO SCH (10:04)
[2017-06-25] MEDS: SERTRALINE HCL 50 MG TABLET (FP) PO SCH (10:04)
[2017-06-25] MEDS: EMTRICITABINE/TENOFOV ALAFENAM (DESCOVY) TABLET PO SCH (10:04)
[2017-06-25] MEDS: traZODone HCL 50 MG TABLET (FP) PO SCH (21:14)
[2017-06-25] MEDS: THIAMINE HCL 100 MG TABLET (FP) PO SCH (21:14)
[2017-06-26] MEDS: CLOTRIMAZOLE 10 MG TROCHE (FP) PO SCH ×5 (06:42→21:44)
[2017-06-26] MEDS: EMTRICITABINE/TENOFOV ALAFENAM (DESCOVY) TABLET PO SCH (10:03)
[2017-06-26] MEDS: PRENATAL VITAMINS W/ FOLIC ACID TABLET (FP) PO SCH (10:03)
[2017-06-26] MEDS: SERTRALINE HCL 50 MG TABLET (FP) PO SCH (10:03)
[2017-06-26] MEDS: CARBAMIDE PEROXIDE 6.5% OTIC 15 ML BOTTLE AD SCH (10:04)
[2017-06-26] MEDS: NICOTINE 14 MG/24 HOURS TOPICAL PATCH TD PRN (10:05)
[2017-06-26] MEDS: IBUPROFEN 400 MG TABLET (FP) PO PRN ×2 (14:24→21:43)
[2017-06-26] MEDS: THIAMINE HCL 100 MG TABLET (FP) PO SCH (21:42)
[2017-06-26] MEDS: traZODone HCL 50 MG TABLET (FP) PO SCH (21:42)
[2017-06-27] MEDS: CLOTRIMAZOLE 10 MG TROCHE (FP) PO SCH ×5 (06:43→21:38)
[2017-06-27] MEDS: NICOTINE 14 MG/24 HOURS TOPICAL PATCH TD PRN (09:59)
[2017-06-27] MEDS: PRENATAL VITAMINS W/ FOLIC ACID TABLET (FP) PO SCH (09:59)
[2017-06-27] MEDS: EMTRICITABINE/TENOFOV ALAFENAM (DESCOVY) TABLET PO SCH (09:59)
[2017-06-27] MEDS: SERTRALINE HCL 50 MG TABLET (FP) PO SCH (09:59)
[2017-06-27] MEDS: IBUPROFEN 400 MG TABLET (FP) PO PRN (15:59)
[2017-06-27] MEDS: THIAMINE HCL 100 MG TABLET (FP) PO SCH (21:36)
[2017-06-27] MEDS: traZODone HCL 50 MG TABLET (FP) PO SCH (21:36)
[2017-06-27] MEDS: CARBAMIDE PEROXIDE 6.5% OTIC 15 ML BOTTLE AU SCH (21:38)
[2017-06-28] MEDS: CLOTRIMAZOLE 10 MG TROCHE (FP) PO SCH ×5 (05:52→21:50)
[2017-06-28] MEDS: SERTRALINE HCL 50 MG TABLET (FP) PO SCH (10:09)
[2017-06-28] MEDS: PRENATAL VITAMINS W/ FOLIC ACID TABLET (FP) PO SCH (10:09)
[2017-06-28] MEDS: CARBAMIDE PEROXIDE 6.5% OTIC 15 ML BOTTLE AU SCH ×2 (10:10→21:50)
[2017-06-28] MEDS: EMTRICITABINE/TENOFOV ALAFENAM (DESCOVY) TABLET PO SCH (10:10)
[2017-06-28] MEDS: NICOTINE 14 MG/24 HOURS TOPICAL PATCH TD PRN (10:13)
[2017-06-28] MEDS ORDERED: AMMONIUM LACTATE 12% LOTION 225 GM BOTTLE TP PRN (13:31)
[2017-06-28] MEDS ORDERED: COLLOIDAL OATMEAL 1 BAR EACH TP PRN (13:31)
[2017-06-28] MEDS: IBUPROFEN 400 MG TABLET (FP) PO PRN (13:48)
[2017-06-28] MEDS: THIAMINE HCL 100 MG TABLET (FP) PO SCH (21:49)
[2017-06-28] MEDS: traZODone HCL 50 MG TABLET (FP) PO SCH (21:49)
[2017-06-29] MEDS: CLOTRIMAZOLE 10 MG TROCHE (FP) PO SCH ×5 (06:10→22:34)
[2017-06-29] MEDS: EMTRICITABINE/TENOFOV ALAFENAM (DESCOVY) TABLET PO SCH (09:47)
[2017-06-29] MEDS: CARBAMIDE PEROXIDE 6.5% OTIC 15 ML BOTTLE AU SCH ×2 (09:47→21:46)
[2017-06-29] MEDS: PRENATAL VITAMINS W/ FOLIC ACID TABLET (FP) PO SCH (09:47)
[2017-06-29] MEDS: SERTRALINE HCL 50 MG TABLET (FP) PO SCH (09:47)
[2017-06-29] MEDS: NICOTINE 14 MG/24 HOURS TOPICAL PATCH TD PRN (09:48)
[2017-06-29] MEDS: IBUPROFEN 400 MG TABLET (FP) PO PRN (15:17)
[2017-06-29] MEDS: THIAMINE HCL 100 MG TABLET (FP) PO SCH (21:44)
[2017-06-29] MEDS: traZODone HCL 50 MG TABLET (FP) PO SCH (21:44)
[2017-06-30] MEDS: CLOTRIMAZOLE 10 MG TROCHE (FP) PO SCH ×5 (05:58→22:27)
[2017-06-30] MEDS: EMTRICITABINE/TENOFOV ALAFENAM (DESCOVY) TABLET PO SCH (09:48)
[2017-06-30] MEDS: SERTRALINE HCL 50 MG TABLET (FP) PO SCH (09:48)
[2017-06-30] MEDS: PRENATAL VITAMINS W/ FOLIC ACID TABLET (FP) PO SCH (09:49)
[2017-06-30] MEDS: NICOTINE 14 MG/24 HOURS TOPICAL PATCH TD PRN (09:49)
[2017-06-30] MEDS: CARBAMIDE PEROXIDE 6.5% OTIC 15 ML BOTTLE AU SCH ×2 (10:06→22:26)
--- NOTE | 2017-06-30 13:31 | PN ---
Psychiatric Progress Note Vital Signs: Vital Signs Period Temp Pulse Resp BP Sys/Franco Pulse Ox Last 24 Hr 97.4 F 80 16-18 115/76 Date of Session: 06/30/17 Chief Complaint:: Discharge Note HPI: Patient addressing Alcohol and Cocaine Dependence comorbid with Nicotine Dependence, Schizoaffective Disorder, Substance-induced Mood Disorder and Substance-induced Sleep Disorder ROS: Seizure Disorder, HIV were medically managed Current Medications: Active Medications Generic Name Dose Route Start Last Admin Trade Name Freq PRN Reason Stop Dose Admin Acetaminophen 650 mg 06/17/17 16:26 06/24/17 19:48 Tylenol - PO 650 mg Q4H PRN Administration FEVER Al Hydroxide/Mg Hydroxide 30 ml 06/17/17 16:26 Mylanta Oral Suspension - PO Q6H PRN DYSPEPSIA Carbamide Perox/Anhydrous Glycerin 5 drop 06/27/17 22:00 06/30/17 10:06 Debrox - AU 5 drop BID [place] Administration Clotrimazole 10 mg 06/19/17 14:00 06/30/17 09:49 Mycelex Tammie's - PO 10 mg 5XD [place] Administration Colloidal Oatmeal 1 applic 06/28/17 13:31 Aveeno Soap - TP DAILY PRN HYGEINE Eucalyptus/Menthol/Phenol/Sorbitol 1 each 06/17/17 16:26 Cepastat Lozenge - MM Q4H PRN SORE THROAT Guaifenesin 10 ml 06/17/17 16:26 Robitussin Dm - PO Q6H PRN COUGH Ibuprofen 400 mg 06/17/17 16:26 06/29/17 15:17 Motrin - PO 400 mg Q6H PRN Administration Pain Level 4-6 Lactic Acid 1 applic 06/28/17 13:31 Lac-Hydrin 12 TP BID PRN DRY SKIN Loperamide HCl 4 mg 06/17/17 16:26 Imodium - PO Q6H PRN DIARRHEA Magnesium Citrate 300 ml 06/17/17 16:26 Citroma - PO Q48H PRN CONSTIPATION Magnesium Hydroxide 30 ml 06/17/17 16:26 Milk Of Magnesia - PO DAILY PRN CONSTIPATION Nicotine 14 mg 06/17/17 16:26 06/30/17 09:49 Nicoderm Patch - TD 14 mg DAILY PRN Administration WITHDRAWAL(CONT SUBST) Nicotine Polacrilex 2 mg 06/17/17 16:26 Nicorette Gum - BUC Q2H PRN NICOTINE REPLACEMENT RX Multivit/Folic Acid/Iron 1 tab 06/18/17 10:00 06/30/17 09:49 Vitamins (Sjr) - PO 1 tab DAILY [place] Administration Pseudoephedrine/Triprolidine 1 combo 06/17/17 16:26 Actifed - PO TID PRN NASAL CONGESTION Sertraline HCl 50 mg 06/18/17 10:45 06/30/17 09:48 Zoloft - PO 50 mg DAILY [place] Administration Thiamine HCl 100 mg 06/17/17 22:00 06/29/17 21:44 Vitamin B1 - PO 100 mg HS [place] Administration Trazodone HCl 150 mg 06/18/17 22:00 06/29/17 21:44 Desyrel - PO 150 mg HS [place]NA Administration Current Side Effect: No Lab tests ordered: Yes Lab tests reviewed: Yes Provider note:: Patient will complete this program on 07/01/17. He has met his treatment goals and will continue to address his issues in outpatient treatment at [facility] at [address] [place] [address] . Told leader writer that from his participation in this program, he has learned the importance of making meetings and having a sponsor. He responded well to Zoloft 50 mg po daily and Trazadone 150 mg po HS. Scripts for 30 days supply of medications will be electronically transmitted to [facility] at [address] [place] [address]. He is stable for discharge on 07/01/17 Total face to face time:: 35 Mental Status Exam - Mental Status Exam Alert and Oriented to: Time, Place, Person Cognitive Function: Fair Patient Appearance: Well Groomed Mood: Hopeful, Euthymic Affect: Appropriate Patient Behavior: Cooperative Speech Pattern: Clear Voice Loudness: Normal Thought Process: Intact, Goal Oriented Thought Disorder: Not Present Hallucinations: Denies Suicidal Ideation: Denies Homicidal Ideation: Denies Insight/Judgement: Fair Sleep: Fair Appetite: Good Muscle strength/Tone: Normal Gait/Station: Normal Psychiatric Treatment Plan - Problem List (1) Alcohol dependence Current Visit: Yes (2) Cocaine dependence Current Visit: No Qualifiers: Substance use status: uncomplicated Qualified Code(s): F14.20 - Cocaine dependence, uncomplicated (3) Nicotine dependence Current Visit: No Qualifiers: Nicotine product type: cigarettes Substance use status: uncomplicated Qualified Code(s): F17.210 - Nicotine dependence, cigarettes, uncomplicated (4) Schizoaffective disorder Current Visit: Yes (5) Substance induced mood disorder Current Visit: Yes (6) Substance-induced sleep disorder Current Visit: Yes (7) HIV (human immunodeficiency virus infection) Current Visit: No (8) Seizure Current Visit: No Initial treatment plan: Patient will be discharged tomorrow and referred to [facility] in [facility] for outpatient treatment
[2017-06-30] MEDS: IBUPROFEN 400 MG TABLET (FP) PO PRN (14:43)
[2017-06-30] MEDS: THIAMINE HCL 100 MG TABLET (FP) PO SCH (21:19)
[2017-06-30] MEDS: traZODone HCL 50 MG TABLET (FP) PO SCH (21:19)
[2017-07-01] MEDS: CLOTRIMAZOLE 10 MG TROCHE (FP) PO SCH ×2 (06:22→09:10)
[2017-07-01 07:10] VITALS: BP 137/89; PULSE 83; TEMP 97.6
[2017-07-01] MEDS: PRENATAL VITAMINS W/ FOLIC ACID TABLET (FP) PO SCH (09:09)
[2017-07-01] MEDS: CARBAMIDE PEROXIDE 6.5% OTIC 15 ML BOTTLE AU SCH (09:10)
[2017-07-01] MEDS: SERTRALINE HCL 50 MG TABLET (FP) PO SCH (09:10)
[2017-07-01] MEDS: EMTRICITABINE/TENOFOV ALAFENAM (DESCOVY) TABLET PO SCH (09:10)
[2017-07-01] MEDS ORDERED: PT OWN MED DRAWER 7, Y5N ONE (09:14)
== END 2017-07-01 09:25 | disposition home or self-care (01) | DRG 772 ==
LOC: YASAS 13:23 → Y3W 13:25
PROVIDERS: ADMIT Psychiatry & Neurology Psychiatry; ATTEND Psychiatry & Neurology Psychiatry
PROC: HZ42ZZZ Group Counseling for Substance Abuse Treatment, Cognitive-Behavioral (ICD-10-PCS; principal; 2017-06-17)
DX: F10.20 Alcohol dependence, uncomplicated (principal); F14.20 Cocaine dependence, uncomplicated; F17.210 Nicotine dependence, cigarettes, uncomplicated; F25.9 Schizoaffective disorder, unspecified; F19.24 Other psychoactive substance dependence with psychoactive substance-induced mood disorder; F19.282 Other psychoactive substance dependence with psychoactive substance-induced sleep disorder; Z21 Asymptomatic human immunodeficiency virus [HIV] infection status; Z86.69 Personal history of other diseases of the nervous system and sense organs

== ENCOUNTER 2021-02-16 12:43 | Inpatient (IN) | payer OTHER ==
[2021-02-16 15:47] VITALS: BMI 25.2
[2021-02-16] MEDS ORDERED: MAGNESIUM CITRATE 300 ML BOTTLE PO PRN (18:01)
[2021-02-16] MEDS ORDERED: ONDANSETRON *ODT* 4 MG TABLET SL PRN (18:01)
[2021-02-16] MEDS ORDERED: ACETAMINOPHEN 325 MG TABLET (FP) PO PRN ×2 (18:01)
[2021-02-16] MEDS ORDERED: MAG HYDROX/AL HYDROX/SIMETH 30 ML UNIT-DOSE CUP PO PRN (18:01)
[2021-02-16] MEDS ORDERED: BISMUTH SUBSALICYLATE 524 MG/30 ML PO PRN (18:01)
[2021-02-16] MEDS ORDERED: MAGNESIUM HYDROX 2400MG/30ML ORAL SUSPENSION 30 ML CUP PO PRN (18:01)
[2021-02-16] MEDS ORDERED: NICOTINE POLACRILEX 2 MG GUM BUC PRN (18:01)
[2021-02-16] MEDS ORDERED: MENTHOL/PHENOL 1 EACH UD MM PRN (18:01)
[2021-02-16] MEDS ORDERED: diazePAM 5 MG TABLET PO ONE (18:03)
[2021-02-17] MEDS ORDERED: diazePAM 5 MG TABLET ONE ×3 (02:17→10:08)
[2021-02-17] MEDS: MELATONIN 5 MG TABLETS PO SCH ×2 (02:21→22:14)
[2021-02-17] MEDS: THIAMINE HCL 100 MG TABLET (FP) PO SCH ×2 (02:21→22:15)
[2021-02-17] MEDS: diazePAM 5 MG TABLET PO SCH ×5 (02:21→22:15)
[2021-02-17 08:29] LABS: HEMOGLOBIN 14.3 GM/dL (11.7-16.9); MCHC 34.8 g/dl (32.0-35.9); MEAN CELL VOLUME 91.8 fl (80-96); MEAN PLT VOLUME 7.7 fl (7.5-11.1); PLATELET COUNT 247 10^3/uL (134-434); RBC 4.47 M/mm3 (4.00-5.60); RDW 14.3 % (11.9-15.9); WHITE BLOOD COUNT 6.3 K/mm3 (4.0-10.0)
[2021-02-17 09:24] LABS: CALCIUM 9.1 mg/dL (8.5-10.1)
[2021-02-17 09:25] LABS: ALBUMIN 3.6 g/dl (3.4-5.0)
[2021-02-17 09:27] LABS: TOT PROT 7.5 g/dl (6.4-8.2)
[2021-02-17 09:28] LABS: CREATININE 0.7 mg/dL (0.55-1.3)
[2021-02-17 09:31] LABS: BILIRUBIN,TOTAL 1.6 mg/dL (0.2-1)
[2021-02-17] MEDS: NICOTINE 7 MG/24 HOURS TOPICAL PATCH TD SCH (10:13)
[2021-02-17] MEDS: PRENATAL VITAMINS W/ FOLIC ACID TABLET (FP) PO SCH (10:13)
[2021-02-17] MEDS: METHOCARBAMOL 500 MG TABLET PO PRN (15:18)
[2021-02-17] MEDS: IBUPROFEN 400 MG TABLET (FP) PO PRN (15:18)
[2021-02-17] MEDS: hydrOXYzine PAMOATE 25 MG CAPSULE (FP) PO PRN (18:16)
[2021-02-18] MEDS: diazePAM 5 MG TABLET PO SCH ×3 (06:14→22:07)
[2021-02-18] MEDS: IBUPROFEN 400 MG TABLET (FP) PO PRN (06:20)
[2021-02-18] MEDS: PRENATAL VITAMINS W/ FOLIC ACID TABLET (FP) PO SCH (11:22)
[2021-02-18] MEDS: NICOTINE 7 MG/24 HOURS TOPICAL PATCH TD SCH (11:22)
[2021-02-18] MEDS: traZODone HCL 50 MG TABLET (FP) PO SCH (22:07)
[2021-02-18] MEDS: MELATONIN 5 MG TABLETS PO SCH (22:07)
[2021-02-18] MEDS: THIAMINE HCL 100 MG TABLET (FP) PO SCH (22:07)
[2021-02-19] MEDS: diazePAM 5 MG TABLET PO SCH ×2 (06:11→17:15)
[2021-02-19] MEDS: PRENATAL VITAMINS W/ FOLIC ACID TABLET (FP) PO SCH (10:12)
[2021-02-19] MEDS: diazePAM 5 MG TABLET PO PRN ×2 (10:12→17:14)
[2021-02-19] MEDS: NICOTINE 7 MG/24 HOURS TOPICAL PATCH TD SCH (10:13)
[2021-02-19] MEDS: hydrOXYzine PAMOATE 25 MG CAPSULE (FP) PO PRN (11:44)
[2021-02-19] MEDS: IBUPROFEN 400 MG TABLET (FP) PO PRN (14:42)
[2021-02-19] MEDS: traZODone HCL 50 MG TABLET (FP) PO SCH (22:24)
[2021-02-19] MEDS: THIAMINE HCL 100 MG TABLET (FP) PO SCH (22:24)
[2021-02-19] MEDS: MELATONIN 5 MG TABLETS PO SCH (22:24)
[2021-02-20] MEDS: IBUPROFEN 400 MG TABLET (FP) PO PRN (04:47)
[2021-02-20] MEDS ORDERED: diazePAM 5 MG TABLET PO ONE (06:00)
[2021-02-20 09:49] VITALS: BP 153/83; PULSE 82; TEMP 97.1
[2021-02-20] MEDS: PRENATAL VITAMINS W/ FOLIC ACID TABLET (FP) PO SCH (10:12)
[2021-02-20] MEDS: METHOCARBAMOL 500 MG TABLET PO PRN (10:12)
[2021-02-20] MEDS: NICOTINE 7 MG/24 HOURS TOPICAL PATCH TD SCH (10:13)
== END 2021-02-20 11:45 | disposition other institution (70) | DRG 774 ==
LOC: YASAS 12:43 → Y3N 02-17 11:22
PROVIDERS: ADMIT Allergy & Immunology; ATTEND Allergy & Immunology
PROC: HZ2ZZZZ Detoxification Services for Substance Abuse Treatment (ICD-10-PCS; principal; 2021-02-17)
DX: F10.230 Alcohol dependence with withdrawal, uncomplicated (principal); F14.20 Cocaine dependence, uncomplicated; F17.210 Nicotine dependence, cigarettes, uncomplicated; F25.9 Schizoaffective disorder, unspecified; F19.282 Other psychoactive substance dependence with psychoactive substance-induced sleep disorder; F19.24 Other psychoactive substance dependence with psychoactive substance-induced mood disorder; Z21 Asymptomatic human immunodeficiency virus [HIV] infection status; G40.89 Other seizures; Z91.14 Patient's other noncompliance with medication regimen
CPT/HCPCS: 36415; 80053; 85027; 86780; C9803; U0003; U0005

== ENCOUNTER 2021-02-20 11:56 | Inpatient (IN) | payer OTHER ==
[2021-02-20] MEDS ORDERED: LOPERAMIDE HCL 2 MG CAPSULE PO PRN (13:19)
[2021-02-20] MEDS ORDERED: guaiFENesin 200 MG/10 ML 10 ML UNIT-DOSE CUPS PO PRN (13:19)
[2021-02-20] MEDS ORDERED: P-EPHED 60MG/TRIPROLIDI 2.5MG TABLET PO PRN (13:19)
[2021-02-20] MEDS ORDERED: MAGNESIUM CITRATE 300 ML BOTTLE PO PRN (13:19)
[2021-02-20] MEDS ORDERED: MAGNESIUM HYDROX 2400MG/30ML ORAL SUSPENSION 30 ML CUP PO PRN (13:19)
[2021-02-20] MEDS ORDERED: NICOTINE POLACRILEX 2 MG GUM BUC PRN (13:19)
[2021-02-20] MEDS ORDERED: MENTHOL/PHENOL 1 EACH UD MM PRN (13:19)
[2021-02-20] MEDS ORDERED: MAG HYDROX/AL HYDROX/SIMETH 30 ML UNIT-DOSE CUP PO PRN (13:19)
[2021-02-20] MEDS: IBUPROFEN 400 MG TABLET (FP) PO PRN ×2 (14:27→21:25)
[2021-02-20] MEDS: hydrOXYzine PAMOATE 25 MG CAPSULE (FP) PO PRN (14:27)
[2021-02-20] MEDS: HYDROCORTISONE 1% TOPICAL CREAM 30 GM TUBE TP PRN (14:27)
[2021-02-20] MEDS: BICTEGRAV/EMTRICIT/TENOFOV (BIKTARVY) 50-200-25 MG TABLET PO SCH (14:27)
[2021-02-20] MEDS: NICOTINE 10 MG CARTRIDGE (INHALER) IH PRN (15:35)
[2021-02-20] MEDS: THIAMINE HCL 100 MG TABLET (FP) PO SCH (21:25)
[2021-02-20] MEDS ORDERED: MELATONIN 5 MG TABLETS PO SCH (22:00)
[2021-02-20] MEDS ORDERED: traZODone HCL 100 MG TABLET (FP) PO SCH (22:00)
[2021-02-21] MEDS: NICOTINE 21 MG/24 HOURS TOPICAL PATCH TD SCH (09:57)
[2021-02-21] MEDS: BICTEGRAV/EMTRICIT/TENOFOV (BIKTARVY) 50-200-25 MG TABLET PO SCH (09:57)
[2021-02-21] MEDS: NICOTINE 10 MG CARTRIDGE (INHALER) IH PRN (09:57)
[2021-02-21] MEDS: PRENATAL VITAMINS W/ FOLIC ACID TABLET (FP) PO SCH (09:57)
[2021-02-21] MEDS: hydrOXYzine PAMOATE 25 MG CAPSULE (FP) PO PRN (09:58)
[2021-02-21] MEDS: IBUPROFEN 400 MG TABLET (FP) PO PRN ×2 (12:50→21:31)
[2021-02-21] MEDS: THIAMINE HCL 100 MG TABLET (FP) PO SCH (21:29)
[2021-02-21] MEDS: MELATONIN 5 MG TABLETS PO PRN (21:30)
[2021-02-21] MEDS: traZODone HCL 50 MG TABLET (FP) PO SCH (21:31)
[2021-02-22] MEDS: IBUPROFEN 400 MG TABLET (FP) PO PRN (09:39)
[2021-02-22] MEDS: BICTEGRAV/EMTRICIT/TENOFOV (BIKTARVY) 50-200-25 MG TABLET PO SCH (09:39)
[2021-02-22] MEDS: PRENATAL VITAMINS W/ FOLIC ACID TABLET (FP) PO SCH (09:39)
[2021-02-22] MEDS: hydrOXYzine PAMOATE 50 MG CAPSULE (FP) PO PRN ×2 (09:40→21:16)
[2021-02-22] MEDS: NICOTINE 21 MG/24 HOURS TOPICAL PATCH TD SCH (09:40)
[2021-02-22] MEDS: ACETAMINOPHEN 325 MG TABLET (FP) PO PRN (14:18)
[2021-02-22] MEDS: MELATONIN 5 MG TABLETS PO PRN (21:16)
[2021-02-22] MEDS: THIAMINE HCL 100 MG TABLET (FP) PO SCH (21:16)
[2021-02-22] MEDS: traZODone HCL 50 MG TABLET (FP) PO SCH (21:17)
[2021-02-23] MEDS: BICTEGRAV/EMTRICIT/TENOFOV (BIKTARVY) 50-200-25 MG TABLET PO SCH (09:54)
[2021-02-23] MEDS: NICOTINE 21 MG/24 HOURS TOPICAL PATCH TD SCH (09:54)
[2021-02-23] MEDS: PRENATAL VITAMINS W/ FOLIC ACID TABLET (FP) PO SCH (09:54)
[2021-02-23] MEDS: METHOCARBAMOL 500 MG TABLET PO PRN (09:56)
[2021-02-23] MEDS: NICOTINE 10 MG CARTRIDGE (INHALER) IH PRN ×2 (09:56→19:02)
[2021-02-23] MEDS: IBUPROFEN 400 MG TABLET (FP) PO PRN ×2 (09:57→21:51)
[2021-02-23] MEDS: HYDROCORTISONE 1% TOPICAL CREAM 30 GM TUBE TP PRN (10:56)
[2021-02-23] MEDS ORDERED: COLLOIDAL OATMEAL 1 BAR EACH TP PRN (12:10)
[2021-02-23] MEDS: MINERAL OIL/PETROLAT/WATER TOPICAL CREAM 113 GM JAR TP SCH (13:29)
[2021-02-23] MEDS: BENZOCAINE 20 % GEL TUBE MM PRN (13:30)
[2021-02-23] MEDS: traZODone HCL 50 MG TABLET (FP) PO SCH (21:49)
[2021-02-23] MEDS: THIAMINE HCL 100 MG TABLET (FP) PO SCH (21:49)
[2021-02-23] MEDS: hydrOXYzine PAMOATE 50 MG CAPSULE (FP) PO PRN (21:50)
[2021-02-23] MEDS: MELATONIN 5 MG TABLETS PO PRN (21:50)
[2021-02-24] MEDS: NICOTINE 10 MG CARTRIDGE (INHALER) IH PRN ×2 (10:12→17:53)
[2021-02-24] MEDS: METHOCARBAMOL 500 MG TABLET PO PRN ×2 (10:14→21:11)
[2021-02-24] MEDS: BICTEGRAV/EMTRICIT/TENOFOV (BIKTARVY) 50-200-25 MG TABLET PO SCH (10:14)
[2021-02-24] MEDS: NICOTINE 21 MG/24 HOURS TOPICAL PATCH TD SCH (10:14)
[2021-02-24] MEDS: hydrOXYzine PAMOATE 50 MG CAPSULE (FP) PO PRN ×2 (10:14→21:08)
[2021-02-24] MEDS: PRENATAL VITAMINS W/ FOLIC ACID TABLET (FP) PO SCH (10:15)
[2021-02-24] MEDS: HYDROCORTISONE 1% TOPICAL CREAM 30 GM TUBE TP PRN (10:15)
[2021-02-24] MEDS: MINERAL OIL/PETROLAT/WATER TOPICAL CREAM 113 GM JAR TP SCH (10:15)
[2021-02-24] MEDS: BENZOCAINE 20 % GEL TUBE MM PRN (10:17)
[2021-02-24] MEDS: ACETAMINOPHEN 325 MG TABLET (FP) PO PRN (14:28)
[2021-02-24] MEDS: THIAMINE HCL 100 MG TABLET (FP) PO SCH (21:05)
[2021-02-24] MEDS: MELATONIN 5 MG TABLETS PO PRN (21:06)
[2021-02-24] MEDS: IBUPROFEN 400 MG TABLET (FP) PO PRN (21:11)
[2021-02-24] MEDS: traZODone HCL 50 MG TABLET (FP) PO SCH (22:24)
[2021-02-25] MEDS: NICOTINE 10 MG CARTRIDGE (INHALER) IH PRN ×2 (06:59→21:21)
[2021-02-25] MEDS: NICOTINE 21 MG/24 HOURS TOPICAL PATCH TD SCH (09:59)
[2021-02-25] MEDS: PRENATAL VITAMINS W/ FOLIC ACID TABLET (FP) PO SCH (09:59)
[2021-02-25] MEDS: BICTEGRAV/EMTRICIT/TENOFOV (BIKTARVY) 50-200-25 MG TABLET PO SCH (09:59)
[2021-02-25] MEDS: MINERAL OIL/PETROLAT/WATER TOPICAL CREAM 113 GM JAR TP SCH (10:01)
[2021-02-25] MEDS: BENZOCAINE 20 % GEL TUBE MM PRN (10:01)
[2021-02-25] MEDS: METHOCARBAMOL 500 MG TABLET PO PRN ×2 (10:03→21:19)
[2021-02-25] MEDS: hydrOXYzine PAMOATE 50 MG CAPSULE (FP) PO PRN ×2 (10:03→21:20)
[2021-02-25] MEDS: ACETAMINOPHEN 325 MG TABLET (FP) PO PRN (10:03)
[2021-02-25] MEDS: IBUPROFEN 400 MG TABLET (FP) PO PRN ×2 (14:47→21:20)
[2021-02-25] MEDS: THIAMINE HCL 100 MG TABLET (FP) PO SCH (21:17)
[2021-02-25] MEDS: traZODone HCL 50 MG TABLET (FP) PO SCH (21:17)
[2021-02-25] MEDS: MELATONIN 5 MG TABLETS PO PRN (21:17)
[2021-02-26] MEDS: BICTEGRAV/EMTRICIT/TENOFOV (BIKTARVY) 50-200-25 MG TABLET PO SCH (10:00)
[2021-02-26] MEDS: NICOTINE 21 MG/24 HOURS TOPICAL PATCH TD SCH (10:01)
[2021-02-26] MEDS: PRENATAL VITAMINS W/ FOLIC ACID TABLET (FP) PO SCH (10:01)
[2021-02-26] MEDS: hydrOXYzine PAMOATE 50 MG CAPSULE (FP) PO PRN ×2 (10:02→21:20)
[2021-02-26] MEDS: NICOTINE 10 MG CARTRIDGE (INHALER) IH PRN ×2 (10:02→21:22)
[2021-02-26] MEDS: MINERAL OIL/PETROLAT/WATER TOPICAL CREAM 113 GM JAR TP SCH (10:03)
[2021-02-26] MEDS: HYDROCORTISONE 1% TOPICAL CREAM 30 GM TUBE TP PRN (10:03)
[2021-02-26] MEDS: ACETAMINOPHEN 325 MG TABLET (FP) PO PRN (18:52)
[2021-02-26] MEDS: THIAMINE HCL 100 MG TABLET (FP) PO SCH (21:17)
[2021-02-26] MEDS: traZODone HCL 50 MG TABLET (FP) PO SCH (21:17)
[2021-02-26] MEDS: METHOCARBAMOL 500 MG TABLET PO PRN (21:20)
[2021-02-26] MEDS: IBUPROFEN 400 MG TABLET (FP) PO PRN (21:20)
[2021-02-26] MEDS: MELATONIN 5 MG TABLETS PO PRN (21:21)
[2021-02-27] MEDS: PRENATAL VITAMINS W/ FOLIC ACID TABLET (FP) PO SCH (09:52)
[2021-02-27] MEDS: NICOTINE 10 MG CARTRIDGE (INHALER) IH PRN ×2 (09:53→21:22)
[2021-02-27] MEDS: NICOTINE 21 MG/24 HOURS TOPICAL PATCH TD SCH (09:53)
[2021-02-27] MEDS: BICTEGRAV/EMTRICIT/TENOFOV (BIKTARVY) 50-200-25 MG TABLET PO SCH (09:55)
[2021-02-27] MEDS: MINERAL OIL/PETROLAT/WATER TOPICAL CREAM 113 GM JAR TP SCH (09:56)
[2021-02-27] MEDS: HYDROCORTISONE 1% TOPICAL CREAM 30 GM TUBE TP PRN (09:56)
[2021-02-27] MEDS: hydrOXYzine PAMOATE 50 MG CAPSULE (FP) PO PRN ×2 (09:58→21:22)
[2021-02-27] MEDS: METHOCARBAMOL 500 MG TABLET PO PRN ×2 (09:58→21:22)
[2021-02-27] MEDS: ACETAMINOPHEN 325 MG TABLET (FP) PO PRN ×2 (09:58→15:42)
[2021-02-27] MEDS: THIAMINE HCL 100 MG TABLET (FP) PO SCH (21:22)
[2021-02-27] MEDS: traZODone HCL 50 MG TABLET (FP) PO SCH (21:22)
[2021-02-28] MEDS: PRENATAL VITAMINS W/ FOLIC ACID TABLET (FP) PO SCH (10:05)
[2021-02-28] MEDS: hydrOXYzine PAMOATE 50 MG CAPSULE (FP) PO PRN ×2 (10:05→21:15)
[2021-02-28] MEDS: NICOTINE 21 MG/24 HOURS TOPICAL PATCH TD SCH (10:05)
[2021-02-28] MEDS: BICTEGRAV/EMTRICIT/TENOFOV (BIKTARVY) 50-200-25 MG TABLET PO SCH (10:05)
[2021-02-28] MEDS: ACETAMINOPHEN 325 MG TABLET (FP) PO PRN ×2 (10:06→15:01)
[2021-02-28] MEDS: NICOTINE 10 MG CARTRIDGE (INHALER) IH PRN ×2 (10:07→21:16)
[2021-02-28] MEDS: MINERAL OIL/PETROLAT/WATER TOPICAL CREAM 113 GM JAR TP SCH (10:08)
[2021-02-28] MEDS: THIAMINE HCL 100 MG TABLET (FP) PO SCH (21:14)
[2021-02-28] MEDS: HYDROCORTISONE 1% TOPICAL CREAM 30 GM TUBE TP PRN (21:14)
[2021-02-28] MEDS: MELATONIN 5 MG TABLETS PO PRN (21:15)
[2021-02-28] MEDS: METHOCARBAMOL 500 MG TABLET PO PRN (21:15)
[2021-02-28] MEDS: traZODone HCL 50 MG TABLET (FP) PO SCH (21:15)
[2021-03-01] MEDS: NICOTINE 10 MG CARTRIDGE (INHALER) IH PRN ×3 (06:31→21:22)
[2021-03-01] MEDS: PRENATAL VITAMINS W/ FOLIC ACID TABLET (FP) PO SCH (09:54)
[2021-03-01] MEDS: NICOTINE 21 MG/24 HOURS TOPICAL PATCH TD SCH (09:54)
[2021-03-01] MEDS: MINERAL OIL/PETROLAT/WATER TOPICAL CREAM 113 GM JAR TP SCH (09:54)
[2021-03-01] MEDS: hydrOXYzine PAMOATE 50 MG CAPSULE (FP) PO PRN ×2 (09:54→21:20)
[2021-03-01] MEDS: BICTEGRAV/EMTRICIT/TENOFOV (BIKTARVY) 50-200-25 MG TABLET PO SCH (09:54)
[2021-03-01] MEDS: ACETAMINOPHEN 325 MG TABLET (FP) PO PRN (11:43)
[2021-03-01] MEDS: THIAMINE HCL 100 MG TABLET (FP) PO SCH (21:19)
[2021-03-01] MEDS: traZODone HCL 50 MG TABLET (FP) PO SCH (21:19)
[2021-03-01] MEDS: IBUPROFEN 400 MG TABLET (FP) PO PRN (21:20)
[2021-03-01] MEDS: METHOCARBAMOL 500 MG TABLET PO PRN (21:20)
[2021-03-02 05:53] VITALS: BP 146/82; PULSE 77; TEMP 97.5
== END 2021-03-02 08:50 | disposition home or self-care (01) | DRG 772 ==
LOC: YASAS 11:56 → Y5N 11:59
PROVIDERS: ADMIT Allergy & Immunology; ATTEND Allergy & Immunology
PROC: HZ42ZZZ Group Counseling for Substance Abuse Treatment, Cognitive-Behavioral (ICD-10-PCS; principal; 2021-02-20)
DX: F10.20 Alcohol dependence, uncomplicated (principal); F17.210 Nicotine dependence, cigarettes, uncomplicated; Z21 Asymptomatic human immunodeficiency virus [HIV] infection status; R21 Rash and other nonspecific skin eruption; R76.11 Nonspecific reaction to tuberculin skin test without active tuberculosis; Z91.018 Allergy to other foods
CPT/HCPCS: 71046-TC-FY

== ENCOUNTER 2022-10-31 09:35 | Inpatient (IN) | payer OTHER ==
[2022-10-31 10:11] VITALS: BMI 27.1
[2022-10-31] MEDS ORDERED: BENZONATATE 200 MG CAPSULE PO PRN (10:38)
[2022-10-31] MEDS ORDERED: ONDANSETRON *ODT* 4 MG TABLET SL PRN (10:38)
[2022-10-31] MEDS ORDERED: DICYCLOMINE HCL 10 MG CAPSULE PO PRN (10:38)
[2022-10-31] MEDS ORDERED: MAGNESIUM HYDROX 2400MG/30ML ORAL SUSPENSION 30 ML CUP PO PRN (10:38)
[2022-10-31] MEDS ORDERED: BENZOCAINE/MENTHOL (CHLORASEPTIC ) LOZENGE MM PRN (10:38)
[2022-10-31] MEDS ORDERED: NALOXONE HCL 0.4 MG/ML VIAL IM PRN (10:38)
[2022-10-31] MEDS ORDERED: guaiFENesin 600 MG TABLET.ER (FP) PO PRN (10:38)
[2022-10-31] MEDS ORDERED: BISMUTH SUBSALICYLATE 262 MG/15 ML BTL PO PRN (10:38)
[2022-10-31] MEDS ORDERED: MAG HYDROX/AL HYDROX/SIMETH 30 ML UNIT-DOSE CUP PO PRN (10:38)
[2022-10-31] MEDS ORDERED: LOPERAMIDE HCL 2 MG CAPSULE PO PRN (10:38)
[2022-10-31] MEDS ORDERED: COLLOIDAL OATMEAL 1 BAR EACH TP PRN (10:38)
[2022-10-31] MEDS ORDERED: NICOTINE POLACRILEX 2 MG GUM BUC PRN (10:38)
[2022-10-31] MEDS ORDERED: POLYETHYLENE GLYCOL (HEALTHYLAX) 3350 17 GM PACKET PO PRN (10:38)
[2022-10-31] MEDS ORDERED: ACETAMINOPHEN 325 MG TABLET (FP) PO PRN (10:38)
[2022-10-31] MEDS ORDERED: IBUPROFEN 400 MG TABLET (FP) PO PRN (10:38)
[2022-10-31] MEDS ORDERED: NALOXONE HCL (KLOXXADO) 8 MG SPRAY NS PRN (10:38)
[2022-10-31] MEDS ORDERED: BICTEGRAV/EMTRICIT/TENOFOV (BIKTARVY) 50-200-25 MG TABLET PO SCH (10:45)
[2022-10-31] MEDS ORDERED: chlordiazePOXIDE HCL 25 MG CAPSULE ONE (11:07)
[2022-10-31] MEDS ORDERED: NICOTINE 21 MG/24 HOURS TOPICAL PATCH ONE (11:08)
[2022-10-31] MEDS: NICOTINE 21 MG/24 HOURS TOPICAL PATCH TD SCH (11:10)
[2022-10-31] MEDS: chlordiazePOXIDE HCL 25 MG CAPSULE PO SCH ×3 (11:18→22:09)
[2022-10-31] MEDS: IBUPROFEN 600 MG TABLET (FP) PO PRN ×2 (11:52→20:23)
[2022-10-31] MEDS: METHOCARBAMOL 500 MG TABLET PO PRN (11:52)
[2022-10-31] MEDS: BICTEGRAV/EMTRICIT/TENOFOV (BIKTARVY) 50-200-25 MG TABLET PO SCH (11:52)
[2022-10-31] MEDS: ALBUTEROL SO4 HFA INHALER IH SCH ×2 (14:42→22:10)
[2022-10-31 16:08] LABS: HEMATOCRIT 42.6 % (35.4-49); HEMOGLOBIN 14.7 GM/dL (11.7-16.9); MCH 31.7 pg (25.7-33.7); MCHC 34.4 g/dl (32.0-35.9); MEAN PLT VOLUME 7.7 fl (7.5-11.1); PLATELET COUNT 265 10^3/uL (134-434); RBC 4.63 M/mm3 (4.00-5.60); WHITE BLOOD COUNT 6.3 K/mm3 (4.0-10.0)
[2022-10-31 16:11] LABS: POTASSIUM 4.3 mmol/L (3.5-5.1)
[2022-10-31 16:15] LABS: ALBUMIN 3.7 g/dl (3.4-5.0); CALCIUM 9.3 mg/dL (8.5-10.1)
[2022-10-31 16:20] LABS: BILIRUBIN,TOTAL 0.4 mg/dL (0.2-1); TOT PROT 7.9 g/dl (6.4-8.2)
[2022-10-31] MEDS ORDERED: MELATONIN 5 MG TABLETS PO SCH (22:00)
[2022-10-31] MEDS: THIAMINE HCL 100 MG TABLET (FP) PO SCH (22:09)
[2022-11-01] MEDS: chlordiazePOXIDE HCL 25 MG CAPSULE PO SCH ×4 (05:30→22:07)
[2022-11-01] MEDS: ALBUTEROL SO4 HFA INHALER IH SCH ×3 (05:32→22:06)
[2022-11-01] MEDS: BICTEGRAV/EMTRICIT/TENOFOV (BIKTARVY) 50-200-25 MG TABLET PO SCH (07:14)
[2022-11-01] MEDS: NICOTINE 21 MG/24 HOURS TOPICAL PATCH TD SCH (10:12)
[2022-11-01] MEDS: LACTULOSE 20 GM/30 ML UDC (FOR ORAL USE ONLY) PO SCH ×4 (10:13→22:06)
[2022-11-01] MEDS: PRENATAL VITAMINS W/ FOLIC ACID TABLET (FP) PO SCH (10:13)
[2022-11-01] MEDS: METHOCARBAMOL 500 MG TABLET PO PRN (10:14)
[2022-11-01] MEDS: IBUPROFEN 600 MG TABLET (FP) PO PRN ×2 (10:16→19:10)
[2022-11-01] MEDS: AMMONIUM LACTATE 12% LOTION 225 GM BOTTLE TP PRN (15:37)
[2022-11-01] MEDS: THIAMINE HCL 100 MG TABLET (FP) PO SCH (22:06)
[2022-11-01] MEDS: SUVOREXANT 10 MG TABLET PO PRN (22:07)
[2022-11-02] MEDS: chlordiazePOXIDE HCL 25 MG CAPSULE PO SCH ×4 (05:15→22:52)
[2022-11-02] MEDS: ALBUTEROL SO4 HFA INHALER IH SCH ×3 (05:40→22:52)
[2022-11-02] MEDS: BICTEGRAV/EMTRICIT/TENOFOV (BIKTARVY) 50-200-25 MG TABLET PO SCH (07:26)
[2022-11-02] MEDS: PRENATAL VITAMINS W/ FOLIC ACID TABLET (FP) PO SCH (10:09)
[2022-11-02] MEDS: METHOCARBAMOL 500 MG TABLET PO PRN (10:09)
[2022-11-02] MEDS: NICOTINE 21 MG/24 HOURS TOPICAL PATCH TD SCH (10:09)
[2022-11-02] MEDS: LACTULOSE 20 GM/30 ML UDC (FOR ORAL USE ONLY) PO SCH ×4 (10:10→22:52)
[2022-11-02] MEDS: AMMONIUM LACTATE 12% LOTION 225 GM BOTTLE TP PRN (10:42)
[2022-11-02] MEDS: IBUPROFEN 600 MG TABLET (FP) PO PRN (16:42)
[2022-11-02] MEDS: SUVOREXANT 10 MG TABLET PO PRN (22:51)
[2022-11-02] MEDS: THIAMINE HCL 100 MG TABLET (FP) PO SCH (22:52)
[2022-11-03] MEDS: ALBUTEROL SO4 HFA INHALER IH SCH ×3 (05:27→22:10)
[2022-11-03] MEDS: chlordiazePOXIDE HCL 10 MG CAPSULE PO SCH ×4 (05:27→22:10)
[2022-11-03] MEDS: NICOTINE 10 MG CARTRIDGE (INHALER) IH PRN (05:29)
[2022-11-03] MEDS: BICTEGRAV/EMTRICIT/TENOFOV (BIKTARVY) 50-200-25 MG TABLET PO SCH (07:06)
[2022-11-03] MEDS: PRENATAL VITAMINS W/ FOLIC ACID TABLET (FP) PO SCH (10:20)
[2022-11-03] MEDS: NICOTINE 21 MG/24 HOURS TOPICAL PATCH TD SCH (10:21)
[2022-11-03] MEDS: LACTULOSE 20 GM/30 ML UDC (FOR ORAL USE ONLY) PO SCH ×4 (10:22→22:12)
[2022-11-03] MEDS: IBUPROFEN 600 MG TABLET (FP) PO PRN (13:18)
[2022-11-03] MEDS: METHOCARBAMOL 500 MG TABLET PO PRN ×2 (13:19→19:25)
[2022-11-03] MEDS: THIAMINE HCL 100 MG TABLET (FP) PO SCH (22:09)
[2022-11-03] MEDS: SUVOREXANT 10 MG TABLET PO PRN (22:11)
[2022-11-04] MEDS: chlordiazePOXIDE HCL 10 MG CAPSULE PO SCH ×2 (05:13→17:08)
[2022-11-04] MEDS: ALBUTEROL SO4 HFA INHALER IH SCH ×3 (05:13→22:47)
[2022-11-04] MEDS: NICOTINE 10 MG CARTRIDGE (INHALER) IH PRN ×2 (05:15→10:50)
[2022-11-04] MEDS: BICTEGRAV/EMTRICIT/TENOFOV (BIKTARVY) 50-200-25 MG TABLET PO SCH (07:04)
[2022-11-04] MEDS: IBUPROFEN 600 MG TABLET (FP) PO PRN ×2 (08:38→15:43)
[2022-11-04] MEDS: PRENATAL VITAMINS W/ FOLIC ACID TABLET (FP) PO SCH (10:20)
[2022-11-04] MEDS: LACTULOSE 20 GM/30 ML UDC (FOR ORAL USE ONLY) PO SCH ×4 (10:20→23:34)
[2022-11-04] MEDS: NICOTINE 21 MG/24 HOURS TOPICAL PATCH TD SCH (10:20)
[2022-11-04] MEDS: METHOCARBAMOL 500 MG TABLET PO PRN ×2 (10:21→19:39)
[2022-11-04] MEDS: SUVOREXANT 10 MG TABLET PO PRN (21:58)
[2022-11-04] MEDS: THIAMINE HCL 100 MG TABLET (FP) PO SCH (22:46)
[2022-11-04] MEDS: guaiFENesin 600 MG TABLET.ER (FP) PO SCH (22:46)
[2022-11-05] MEDS ORDERED: chlordiazePOXIDE HCL 10 MG CAPSULE PO ONE (05:00)
[2022-11-05] MEDS: ALBUTEROL SO4 HFA INHALER IH SCH ×2 (05:41→13:18)
[2022-11-05] MEDS: BICTEGRAV/EMTRICIT/TENOFOV (BIKTARVY) 50-200-25 MG TABLET PO SCH (07:45)
[2022-11-05] MEDS: PRENATAL VITAMINS W/ FOLIC ACID TABLET (FP) PO SCH (09:18)
[2022-11-05] MEDS: guaiFENesin 600 MG TABLET.ER (FP) PO SCH (09:18)
[2022-11-05] MEDS: NICOTINE 21 MG/24 HOURS TOPICAL PATCH TD SCH ×2 (09:19→10:24)
[2022-11-05] MEDS: LACTULOSE 20 GM/30 ML UDC (FOR ORAL USE ONLY) PO SCH ×2 (09:19→13:18)
[2022-11-05 09:22] VITALS: RESP 18
[2022-11-05] MEDS: NICOTINE 10 MG CARTRIDGE (INHALER) IH PRN (10:20)
[2022-11-05 12:58] VITALS: BP 135/74; PULSE 95; TEMP 99.1
== END 2022-11-05 02:39 | disposition home or self-care (01) | DRG 774 ==
LOC: YASAS 09:35 → Y6N 10:50
PROVIDERS: ADMIT Allergy & Immunology; ATTEND Surgery
PROC: HZ2ZZZZ Detoxification Services for Substance Abuse Treatment (ICD-10-PCS; principal; 2022-10-31)
DX: F10.230 Alcohol dependence with withdrawal, uncomplicated (principal); F14.20 Cocaine dependence, uncomplicated; F12.20 Cannabis dependence, uncomplicated; F17.210 Nicotine dependence, cigarettes, uncomplicated; F31.9 Bipolar disorder, unspecified; F39 Unspecified mood [affective] disorder; F25.9 Schizoaffective disorder, unspecified; F10.282 Alcohol dependence with alcohol-induced sleep disorder; Z21 Asymptomatic human immunodeficiency virus [HIV] infection status; E72.20 Disorder of urea cycle metabolism, unspecified; J45.909 Unspecified asthma, uncomplicated; Z86.69 Personal history of other diseases of the nervous system and sense organs
CPT/HCPCS: 36415; 80053; 82140; 85027; 86780; 87635; 87811

== ENCOUNTER 2022-11-05 14:49 | Inpatient (IN) | payer OTHER ==
[2022-11-05] MEDS ORDERED: POLYETHYLENE GLYCOL (HEALTHYLAX) 3350 17 GM PACKET PO PRN (19:03)
[2022-11-05] MEDS ORDERED: BENZONATATE 200 MG CAPSULE PO PRN (19:03)
[2022-11-05] MEDS ORDERED: BENZOCAINE/MENTHOL (CHLORASEPTIC ) LOZENGE MM PRN (19:03)
[2022-11-05] MEDS ORDERED: AMMONIUM LACTATE 12% LOTION 225 GM BOTTLE TP PRN (19:03)
[2022-11-05] MEDS ORDERED: LOPERAMIDE HCL 2 MG CAPSULE PO PRN (19:03)
[2022-11-05] MEDS ORDERED: ACETAMINOPHEN 325 MG TABLET (FP) PO PRN (19:03)
[2022-11-05] MEDS ORDERED: NALOXONE HCL (KLOXXADO) 8 MG SPRAY NS PRN (19:03)
[2022-11-05] MEDS ORDERED: NALOXONE HCL 0.4 MG/ML VIAL IVPUSH PRN (19:03)
[2022-11-05] MEDS ORDERED: MAGNESIUM HYDROX 2400MG/30ML ORAL SUSPENSION 30 ML CUP PO PRN (19:03)
[2022-11-05] MEDS ORDERED: guaiFENesin 600 MG TABLET.ER (FP) PO PRN (19:03)
[2022-11-05] MEDS ORDERED: ALBUTEROL SO4 HFA INHALER IH PRN (19:19)
[2022-11-05] MEDS: IBUPROFEN 600 MG TABLET (FP) PO PRN (19:39)
[2022-11-05] MEDS: THIAMINE HCL 100 MG TABLET (FP) PO SCH (21:02)
[2022-11-05] MEDS: LACTULOSE 20 GM/30 ML UDC (FOR ORAL USE ONLY) PO SCH (21:03)
[2022-11-05] MEDS ORDERED: MELATONIN 5 MG TABLETS PO SCH (22:00)
[2022-11-06] MEDS: NICOTINE 10 MG CARTRIDGE (INHALER) IH PRN (06:32)
[2022-11-06] MEDS: BICTEGRAV/EMTRICIT/TENOFOV (BIKTARVY) 50-200-25 MG TABLET PO SCH (09:43)
[2022-11-06] MEDS: NICOTINE 21 MG/24 HOURS TOPICAL PATCH TD SCH (09:43)
[2022-11-06] MEDS: LACTULOSE 20 GM/30 ML UDC (FOR ORAL USE ONLY) PO SCH ×4 (09:43→21:28)
[2022-11-06] MEDS: IBUPROFEN 600 MG TABLET (FP) PO PRN ×3 (09:43→21:29)
[2022-11-06] MEDS: PRENATAL VITAMINS W/ FOLIC ACID TABLET (FP) PO SCH (09:43)
[2022-11-06] MEDS: hydrOXYzine PAMOATE 25 MG CAPSULE (FP) PO PRN (13:07)
[2022-11-06] MEDS: THIAMINE HCL 100 MG TABLET (FP) PO SCH (21:28)
[2022-11-06] MEDS: SUVOREXANT 10 MG TABLET PO PRN (21:29)
[2022-11-07] MEDS: NICOTINE 10 MG CARTRIDGE (INHALER) IH PRN (06:07)
[2022-11-07] MEDS: COLLOIDAL OATMEAL 1 BAR EACH TP PRN (06:27)
[2022-11-07] MEDS: BICTEGRAV/EMTRICIT/TENOFOV (BIKTARVY) 50-200-25 MG TABLET PO SCH (10:24)
[2022-11-07] MEDS: LACTULOSE 20 GM/30 ML UDC (FOR ORAL USE ONLY) PO SCH ×4 (10:24→21:02)
[2022-11-07] MEDS: NICOTINE 21 MG/24 HOURS TOPICAL PATCH TD SCH (10:24)
[2022-11-07] MEDS: PRENATAL VITAMINS W/ FOLIC ACID TABLET (FP) PO SCH (10:24)
[2022-11-07] MEDS: IBUPROFEN 600 MG TABLET (FP) PO PRN (10:26)
[2022-11-07] MEDS: hydrOXYzine PAMOATE 25 MG CAPSULE (FP) PO PRN (12:00)
[2022-11-07] MEDS: IBUPROFEN 400 MG TABLET (FP) PO PRN (19:08)
[2022-11-07] MEDS: THIAMINE HCL 100 MG TABLET (FP) PO SCH (21:02)
[2022-11-07] MEDS: SUVOREXANT 10 MG TABLET PO PRN (21:03)
[2022-11-08] MEDS: NICOTINE 10 MG CARTRIDGE (INHALER) IH PRN (06:10)
[2022-11-08] MEDS: BICTEGRAV/EMTRICIT/TENOFOV (BIKTARVY) 50-200-25 MG TABLET PO SCH (09:37)
[2022-11-08] MEDS: LACTULOSE 20 GM/30 ML UDC (FOR ORAL USE ONLY) PO SCH ×4 (09:37→21:19)
[2022-11-08] MEDS: PRENATAL VITAMINS W/ FOLIC ACID TABLET (FP) PO SCH (09:37)
[2022-11-08] MEDS: NICOTINE 21 MG/24 HOURS TOPICAL PATCH TD SCH (09:38)
[2022-11-08] MEDS: IBUPROFEN 600 MG TABLET (FP) PO PRN (09:38)
[2022-11-08] MEDS: hydrOXYzine PAMOATE 25 MG CAPSULE (FP) PO PRN (13:16)
[2022-11-08] MEDS: GABAPENTIN 300 MG CAPSULE PO SCH ×2 (15:49→21:19)
[2022-11-08] MEDS: THIAMINE HCL 100 MG TABLET (FP) PO SCH (21:19)
[2022-11-08] MEDS: METHOCARBAMOL 500 MG TABLET PO PRN (21:20)
[2022-11-08] MEDS ORDERED: LIDOCAINE 5% TOPICAL PATCH TP ONE (21:21)
[2022-11-08] MEDS: SUVOREXANT 10 MG TABLET PO PRN (21:21)
[2022-11-08] MEDS: LIDOCAINE PATCH REMOVAL MC SCH (23:10)
[2022-11-09] MEDS: IBUPROFEN 600 MG TABLET (FP) PO PRN ×3 (02:09→21:32)
[2022-11-09] MEDS: METHOCARBAMOL 500 MG TABLET PO PRN ×2 (02:32→16:32)
[2022-11-09] MEDS ORDERED: LIDOCAINE 5% TOPICAL PATCH TP SCH ×2 (06:00)
[2022-11-09] MEDS: GABAPENTIN 300 MG CAPSULE PO SCH ×3 (06:39→21:29)
[2022-11-09] MEDS: LIDOCAINE 5% TOPICAL PATCH TP SCH ×2 (06:42→10:38)
[2022-11-09] MEDS: NICOTINE 21 MG/24 HOURS TOPICAL PATCH TD SCH (10:36)
[2022-11-09] MEDS: PRENATAL VITAMINS W/ FOLIC ACID TABLET (FP) PO SCH (10:37)
[2022-11-09] MEDS: LACTULOSE 20 GM/30 ML UDC (FOR ORAL USE ONLY) PO SCH ×4 (10:38→21:29)
[2022-11-09] MEDS: BICTEGRAV/EMTRICIT/TENOFOV (BIKTARVY) 50-200-25 MG TABLET PO SCH (10:40)
[2022-11-09] MEDS ORDERED: LIDOCAINE PATCH REMOVAL MC ONE (18:00)
[2022-11-09] MEDS: THIAMINE HCL 100 MG TABLET (FP) PO SCH (21:29)
[2022-11-09] MEDS: LIDOCAINE PATCH REMOVAL MC SCH (21:29)
[2022-11-09] MEDS: SUVOREXANT 10 MG TABLET PO PRN (21:32)
[2022-11-10] MEDS: GABAPENTIN 300 MG CAPSULE PO SCH ×3 (06:30→21:28)
[2022-11-10] MEDS: METHOCARBAMOL 500 MG TABLET PO PRN ×2 (06:31→12:53)
[2022-11-10] MEDS: IBUPROFEN 600 MG TABLET (FP) PO PRN ×2 (06:32→18:34)
[2022-11-10] MEDS: NICOTINE 10 MG CARTRIDGE (INHALER) IH PRN ×2 (06:35→13:14)
[2022-11-10] MEDS: LIDOCAINE 5% TOPICAL PATCH TP SCH (09:34)
[2022-11-10] MEDS: NICOTINE 21 MG/24 HOURS TOPICAL PATCH TD SCH (09:34)
[2022-11-10] MEDS: LACTULOSE 20 GM/30 ML UDC (FOR ORAL USE ONLY) PO SCH ×4 (09:34→21:29)
[2022-11-10] MEDS: BICTEGRAV/EMTRICIT/TENOFOV (BIKTARVY) 50-200-25 MG TABLET PO SCH (09:34)
[2022-11-10] MEDS: PRENATAL VITAMINS W/ FOLIC ACID TABLET (FP) PO SCH (09:34)
[2022-11-10] MEDS: hydrOXYzine PAMOATE 25 MG CAPSULE (FP) PO PRN ×2 (09:36→21:29)
[2022-11-10] MEDS: THIAMINE HCL 100 MG TABLET (FP) PO SCH (21:28)
[2022-11-10] MEDS: LIDOCAINE PATCH REMOVAL MC SCH (21:29)
[2022-11-10] MEDS: SUVOREXANT 10 MG TABLET PO PRN (21:30)
[2022-11-11] MEDS: GABAPENTIN 300 MG CAPSULE PO SCH ×3 (06:00→21:25)
[2022-11-11] MEDS: METHOCARBAMOL 500 MG TABLET PO PRN (06:01)
[2022-11-11] MEDS: LACTULOSE 20 GM/30 ML UDC (FOR ORAL USE ONLY) PO SCH ×4 (10:01→21:25)
[2022-11-11] MEDS: LIDOCAINE 5% TOPICAL PATCH TP SCH (10:01)
[2022-11-11] MEDS: BICTEGRAV/EMTRICIT/TENOFOV (BIKTARVY) 50-200-25 MG TABLET PO SCH (10:01)
[2022-11-11] MEDS: NICOTINE 21 MG/24 HOURS TOPICAL PATCH TD SCH (10:05)
[2022-11-11] MEDS: PRENATAL VITAMINS W/ FOLIC ACID TABLET (FP) PO SCH (10:06)
[2022-11-11] MEDS: NICOTINE 10 MG CARTRIDGE (INHALER) IH PRN (10:33)
[2022-11-11] MEDS: IBUPROFEN 600 MG TABLET (FP) PO PRN (18:34)
[2022-11-11] MEDS: THIAMINE HCL 100 MG TABLET (FP) PO SCH (21:25)
[2022-11-11] MEDS: SUVOREXANT 10 MG TABLET PO PRN (21:25)
[2022-11-11] MEDS: LIDOCAINE PATCH REMOVAL MC SCH (21:26)
[2022-11-12] MEDS: GABAPENTIN 300 MG CAPSULE PO SCH ×3 (06:24→21:25)
[2022-11-12] MEDS: NICOTINE 10 MG CARTRIDGE (INHALER) IH PRN (06:24)
[2022-11-12] MEDS: PRENATAL VITAMINS W/ FOLIC ACID TABLET (FP) PO SCH (10:41)
[2022-11-12] MEDS: BICTEGRAV/EMTRICIT/TENOFOV (BIKTARVY) 50-200-25 MG TABLET PO SCH (10:41)
[2022-11-12] MEDS: NICOTINE 21 MG/24 HOURS TOPICAL PATCH TD SCH (10:41)
[2022-11-12] MEDS: LIDOCAINE 5% TOPICAL PATCH TP SCH (10:41)
[2022-11-12] MEDS: LACTULOSE 20 GM/30 ML UDC (FOR ORAL USE ONLY) PO SCH ×4 (10:42→21:26)
[2022-11-12] MEDS: IBUPROFEN 600 MG TABLET (FP) PO PRN ×2 (10:43→17:02)
[2022-11-12] MEDS: hydrOXYzine PAMOATE 25 MG CAPSULE (FP) PO PRN (10:44)
[2022-11-12] MEDS: COLLOIDAL OATMEAL 1 BAR EACH TP PRN (17:39)
[2022-11-12] MEDS: THIAMINE HCL 100 MG TABLET (FP) PO SCH (21:25)
[2022-11-12] MEDS: LIDOCAINE PATCH REMOVAL MC SCH (21:26)
[2022-11-12] MEDS: SUVOREXANT 10 MG TABLET PO PRN (21:26)
[2022-11-13] MEDS: NICOTINE 10 MG CARTRIDGE (INHALER) IH PRN ×2 (06:24→21:30)
[2022-11-13] MEDS: GABAPENTIN 300 MG CAPSULE PO SCH ×3 (06:50→21:29)
[2022-11-13] MEDS: PRENATAL VITAMINS W/ FOLIC ACID TABLET (FP) PO SCH (09:38)
[2022-11-13] MEDS: BICTEGRAV/EMTRICIT/TENOFOV (BIKTARVY) 50-200-25 MG TABLET PO SCH (09:38)
[2022-11-13] MEDS: LACTULOSE 20 GM/30 ML UDC (FOR ORAL USE ONLY) PO SCH ×4 (09:38→21:29)
[2022-11-13] MEDS: LIDOCAINE 5% TOPICAL PATCH TP SCH (09:38)
[2022-11-13] MEDS: NICOTINE 21 MG/24 HOURS TOPICAL PATCH TD SCH (09:38)
[2022-11-13] MEDS: hydrOXYzine PAMOATE 25 MG CAPSULE (FP) PO PRN (09:40)
[2022-11-13] MEDS: IBUPROFEN 600 MG TABLET (FP) PO PRN (09:41)
[2022-11-13 13:26] LABS: INR 1.03 (0.83-1.09)
[2022-11-13] MEDS: METHOCARBAMOL 500 MG TABLET PO PRN (21:29)
[2022-11-13] MEDS: LIDOCAINE PATCH REMOVAL MC SCH (21:30)
[2022-11-13] MEDS: SUVOREXANT 15 MG TABLET PO PRN (21:30)
[2022-11-13] MEDS: THIAMINE HCL 100 MG TABLET (FP) PO SCH (21:30)
[2022-11-13] MEDS ORDERED: SUVOREXANT 10 MG TABLET PO PRN (22:00)
[2022-11-14] MEDS: GABAPENTIN 300 MG CAPSULE PO SCH ×3 (05:57→21:09)
[2022-11-14] MEDS: NICOTINE 10 MG CARTRIDGE (INHALER) IH PRN ×2 (06:31→21:10)
[2022-11-14] MEDS: BICTEGRAV/EMTRICIT/TENOFOV (BIKTARVY) 50-200-25 MG TABLET PO SCH (09:37)
[2022-11-14] MEDS: LACTULOSE 20 GM/30 ML UDC (FOR ORAL USE ONLY) PO SCH ×4 (09:38→21:10)
[2022-11-14] MEDS: LIDOCAINE 5% TOPICAL PATCH TP SCH (09:39)
[2022-11-14] MEDS: PRENATAL VITAMINS W/ FOLIC ACID TABLET (FP) PO SCH (09:40)
[2022-11-14] MEDS: NICOTINE 21 MG/24 HOURS TOPICAL PATCH TD SCH (09:40)
[2022-11-14] MEDS: METHOCARBAMOL 500 MG TABLET PO PRN ×2 (09:43→21:09)
[2022-11-14] MEDS: IBUPROFEN 400 MG TABLET (FP) PO PRN (09:45)
[2022-11-14] MEDS: SUVOREXANT 15 MG TABLET PO PRN (21:10)
[2022-11-14] MEDS: THIAMINE HCL 100 MG TABLET (FP) PO SCH (21:38)
[2022-11-14] MEDS: LIDOCAINE PATCH REMOVAL MC SCH (21:39)
[2022-11-15] MEDS: GABAPENTIN 300 MG CAPSULE PO SCH ×3 (05:43→21:08)
[2022-11-15] MEDS: IBUPROFEN 600 MG TABLET (FP) PO PRN ×2 (05:44→18:34)
[2022-11-15] MEDS: hydrOXYzine PAMOATE 25 MG CAPSULE (FP) PO PRN ×2 (05:45→14:12)
[2022-11-15] MEDS: MAG HYDROX/AL HYDROX/SIMETH 30 ML UNIT-DOSE CUP PO PRN (06:38)
[2022-11-15] MEDS: BICTEGRAV/EMTRICIT/TENOFOV (BIKTARVY) 50-200-25 MG TABLET PO SCH (09:38)
[2022-11-15] MEDS: LACTULOSE 20 GM/30 ML UDC (FOR ORAL USE ONLY) PO SCH ×4 (09:38→21:08)
[2022-11-15] MEDS: PRENATAL VITAMINS W/ FOLIC ACID TABLET (FP) PO SCH (09:38)
[2022-11-15] MEDS: LIDOCAINE 5% TOPICAL PATCH TP SCH (09:39)
[2022-11-15] MEDS: NICOTINE 21 MG/24 HOURS TOPICAL PATCH TD SCH (09:39)
[2022-11-15] MEDS: NICOTINE 10 MG CARTRIDGE (INHALER) IH PRN ×2 (09:40→14:07)
[2022-11-15] MEDS: COLLOIDAL OATMEAL 1 BAR EACH TP PRN (10:31)
[2022-11-15] MEDS: THIAMINE HCL 100 MG TABLET (FP) PO SCH (21:08)
[2022-11-15] MEDS: METHOCARBAMOL 500 MG TABLET PO PRN (21:08)
[2022-11-15] MEDS: SUVOREXANT 15 MG TABLET PO PRN (21:09)
[2022-11-15] MEDS: LIDOCAINE PATCH REMOVAL MC SCH (21:09)
[2022-11-16] MEDS: GABAPENTIN 300 MG CAPSULE PO SCH ×3 (06:13→21:03)
[2022-11-16] MEDS: IBUPROFEN 600 MG TABLET (FP) PO PRN (06:14)
[2022-11-16] MEDS: MAG HYDROX/AL HYDROX/SIMETH 30 ML UNIT-DOSE CUP PO PRN (06:27)
[2022-11-16] MEDS: PRENATAL VITAMINS W/ FOLIC ACID TABLET (FP) PO SCH (09:29)
[2022-11-16] MEDS: LIDOCAINE 5% TOPICAL PATCH TP SCH (09:30)
[2022-11-16] MEDS: LACTULOSE 20 GM/30 ML UDC (FOR ORAL USE ONLY) PO SCH ×4 (09:30→21:03)
[2022-11-16] MEDS: BICTEGRAV/EMTRICIT/TENOFOV (BIKTARVY) 50-200-25 MG TABLET PO SCH (09:30)
[2022-11-16] MEDS: NICOTINE 21 MG/24 HOURS TOPICAL PATCH TD SCH (09:31)
[2022-11-16] MEDS: NICOTINE 10 MG CARTRIDGE (INHALER) IH PRN ×3 (09:32→17:00)
[2022-11-16] MEDS: HYDROCORTISONE 0.5% TOPICAL CREAM 30 GM TUBE TP PRN (09:32)
[2022-11-16] MEDS: hydrOXYzine PAMOATE 25 MG CAPSULE (FP) PO PRN ×2 (09:33→15:46)
[2022-11-16] MEDS: METHOCARBAMOL 500 MG TABLET PO PRN ×2 (09:33→21:03)
[2022-11-16] MEDS: SUVOREXANT 15 MG TABLET PO PRN (21:04)
[2022-11-16] MEDS: LIDOCAINE PATCH REMOVAL MC SCH (21:04)
[2022-11-16] MEDS: THIAMINE HCL 100 MG TABLET (FP) PO SCH (21:04)
[2022-11-17] MEDS: IBUPROFEN 600 MG TABLET (FP) PO PRN ×2 (05:44→10:11)
[2022-11-17] MEDS: GABAPENTIN 300 MG CAPSULE PO SCH ×3 (05:46→21:14)
[2022-11-17] MEDS: COLLOIDAL OATMEAL 1 BAR EACH TP PRN (05:46)
[2022-11-17] MEDS: NICOTINE 10 MG CARTRIDGE (INHALER) IH PRN ×3 (05:46→13:10)
[2022-11-17] MEDS: MAG HYDROX/AL HYDROX/SIMETH 30 ML UNIT-DOSE CUP PO PRN (05:47)
[2022-11-17 07:09] VITALS: RESP 18
[2022-11-17] MEDS: BICTEGRAV/EMTRICIT/TENOFOV (BIKTARVY) 50-200-25 MG TABLET PO SCH (10:08)
[2022-11-17] MEDS: LACTULOSE 20 GM/30 ML UDC (FOR ORAL USE ONLY) PO SCH ×4 (10:09→21:14)
[2022-11-17] MEDS: PRENATAL VITAMINS W/ FOLIC ACID TABLET (FP) PO SCH (10:09)
[2022-11-17] MEDS: hydrOXYzine PAMOATE 25 MG CAPSULE (FP) PO PRN (10:11)
[2022-11-17] MEDS: METHOCARBAMOL 500 MG TABLET PO PRN ×2 (10:11→21:14)
[2022-11-17] MEDS: LIDOCAINE 5% TOPICAL PATCH TP SCH (10:22)
[2022-11-17] MEDS: NICOTINE 21 MG/24 HOURS TOPICAL PATCH TD SCH (10:24)
[2022-11-17] MEDS: THIAMINE HCL 100 MG TABLET (FP) PO SCH (21:13)
[2022-11-17] MEDS: SUVOREXANT 15 MG TABLET PO PRN (21:13)
[2022-11-17] MEDS: HYDROCORTISONE 0.5% TOPICAL CREAM 30 GM TUBE TP PRN (21:14)
[2022-11-17] MEDS: LIDOCAINE PATCH REMOVAL MC SCH (21:14)
[2022-11-18] MEDS: NICOTINE 10 MG CARTRIDGE (INHALER) IH PRN ×3 (05:51→19:00)
[2022-11-18] MEDS: GABAPENTIN 300 MG CAPSULE PO SCH ×3 (05:51→21:11)
[2022-11-18] MEDS: IBUPROFEN 600 MG TABLET (FP) PO PRN ×2 (05:52→14:53)
[2022-11-18 06:38] VITALS: BP 116/73; PULSE 81; TEMP 97.1
[2022-11-18] MEDS: BICTEGRAV/EMTRICIT/TENOFOV (BIKTARVY) 50-200-25 MG TABLET PO SCH (09:31)
[2022-11-18] MEDS: LACTULOSE 20 GM/30 ML UDC (FOR ORAL USE ONLY) PO SCH ×4 (09:31→21:12)
[2022-11-18] MEDS: PRENATAL VITAMINS W/ FOLIC ACID TABLET (FP) PO SCH (09:31)
[2022-11-18] MEDS: NICOTINE 21 MG/24 HOURS TOPICAL PATCH TD SCH (09:32)
[2022-11-18] MEDS: LIDOCAINE 5% TOPICAL PATCH TP SCH (09:32)
[2022-11-18] MEDS: METHOCARBAMOL 500 MG TABLET PO PRN ×2 (09:33→21:11)
[2022-11-18] MEDS: hydrOXYzine PAMOATE 25 MG CAPSULE (FP) PO PRN ×2 (09:33→21:12)
[2022-11-18] MEDS: SUVOREXANT 15 MG TABLET PO PRN (21:10)
[2022-11-18] MEDS: THIAMINE HCL 100 MG TABLET (FP) PO SCH (21:12)
[2022-11-18] MEDS: LIDOCAINE PATCH REMOVAL MC SCH (21:12)
[2022-11-19] MEDS: GABAPENTIN 300 MG CAPSULE PO SCH (06:00)
[2022-11-19] MEDS: hydrOXYzine PAMOATE 25 MG CAPSULE (FP) PO PRN (06:00)
[2022-11-19] MEDS: NICOTINE 10 MG CARTRIDGE (INHALER) IH PRN (06:00)
[2022-11-19] MEDS: HYDROCORTISONE 0.5% TOPICAL CREAM 30 GM TUBE TP PRN (06:17)
== END 2022-11-19 09:21 | disposition home or self-care (01) | DRG 775 ==
LOC: YASAS 14:49 → Y3W 14:51
PROVIDERS: ADMIT Allergy & Immunology; ATTEND Psychiatry & Neurology Pain Medicine
PROC: HZ2ZZZZ Detoxification Services for Substance Abuse Treatment (ICD-10-PCS; principal; 2022-11-05)
DX: F10.20 Alcohol dependence, uncomplicated (principal); F17.210 Nicotine dependence, cigarettes, uncomplicated; F25.9 Schizoaffective disorder, unspecified; F31.9 Bipolar disorder, unspecified; F41.9 Anxiety disorder, unspecified; F10.282 Alcohol dependence with alcohol-induced sleep disorder; Z21 Asymptomatic human immunodeficiency virus [HIV] infection status; G47.00 Insomnia, unspecified; J45.909 Unspecified asthma, uncomplicated; L30.9 Dermatitis, unspecified; R79.89 Other specified abnormal findings of blood chemistry; M25.551 Pain in right hip; M54.50 Low back pain, unspecified; W01.0XXA Fall on same level from slipping, tripping and stumbling without subsequent striking against object, initial encounter; Y92.238 Other place in hospital as the place of occurrence of the external cause
CPT/HCPCS: 36415; 82140; 85610

== ENCOUNTER 2022-11-09 11:08 | Emergency (ER) | payer OTHER ==
[2022-11-09 11:15] VITALS: BP 160/74; PULSE 97; RESP 18; TEMP 98.4; BMI 27.6
[2022-11-09] MEDS ORDERED: ACETAMINOPHEN 500 MG TABLET (FP) PO ONE (12:14)
[2022-11-09] MEDS ORDERED: CYCLOBENZAPRINE HCL 10 MG TABLET (FP) PO ONE (12:14)
[2022-11-09] MEDS ORDERED: KETOROLAC TROMETHAMINE 30 MG/1 ML VIAL IM ONE (12:14)
[2022-11-09] MEDS ORDERED: CYCLOBENZAPRINE HCL 10 MG TABLET (FP) ONE (12:23)
[2022-11-09] MEDS ORDERED: ACETAMINOPHEN 325 MG TABLET (FP) ONE (12:23)
[2022-11-09] MEDS ORDERED: KETOROLAC TROMETHAMINE 30 MG/1 ML VIAL ONE (12:23)
== END 2022-11-09 15:34 | disposition home or self-care (01) ==
LOC: JER 11:08
PROC: 3E0233Z Introduction of Anti-inflammatory into Muscle, Percutaneous Approach (ICD-10-PCS; principal; 2022-11-09)
DX: M25.551 Pain in right hip (principal); M54.50 Low back pain, unspecified; W01.0XXA Fall on same level from slipping, tripping and stumbling without subsequent striking against object, initial encounter
CPT/HCPCS: 72100-TC-FY; 73502-TC-RT-FY; 99284-25

== ENCOUNTER 2022-12-21 17:01 | Inpatient (IN) | payer OTHER ==
[2022-12-21 17:47] VITALS: BMI 27.4
[2022-12-21] MEDS ORDERED: ALBUTEROL SO4 HFA INHALER IH PRN (19:32)
[2022-12-21] MEDS ORDERED: ONDANSETRON *ODT* 4 MG TABLET SL PRN (19:45)
[2022-12-21] MEDS ORDERED: DICYCLOMINE HCL 10 MG CAPSULE PO PRN (19:45)
[2022-12-21] MEDS ORDERED: BENZONATATE 200 MG CAPSULE PO PRN (19:45)
[2022-12-21] MEDS ORDERED: POLYETHYLENE GLYCOL (HEALTHYLAX) 3350 17 GM PACKET PO PRN (19:45)
[2022-12-21] MEDS ORDERED: BISMUTH SUBSALICYLATE 524 MG/30 ML PO PRN (19:45)
[2022-12-21] MEDS ORDERED: guaiFENesin 600 MG TABLET.ER (FP) PO PRN (19:45)
[2022-12-21] MEDS ORDERED: LOPERAMIDE HCL 2 MG CAPSULE PO PRN (19:45)
[2022-12-21] MEDS ORDERED: ACETAMINOPHEN 325 MG TABLET (FP) PO PRN (19:45)
[2022-12-21] MEDS ORDERED: IBUPROFEN 400 MG TABLET (FP) PO PRN (19:45)
[2022-12-21] MEDS ORDERED: BENZOCAINE/MENTHOL (CHLORASEPTIC ) LOZENGE MM PRN (19:45)
[2022-12-21] MEDS ORDERED: P-EPHED 60MG/TRIPROLIDI 2.5MG TABLET PO PRN (19:45)
[2022-12-21] MEDS ORDERED: MAGNESIUM HYDROX 2400MG/30ML ORAL SUSPENSION 30 ML CUP PO PRN (19:45)
[2022-12-21] MEDS ORDERED: chlordiazePOXIDE HCL 25 MG CAPSULE PO PRN (19:48)
[2022-12-21] MEDS ORDERED: chlordiazePOXIDE HCL 25 MG CAPSULE PO ONE (19:48)
[2022-12-21] MEDS ORDERED: chlordiazePOXIDE HCL 25 MG CAPSULE ONE (20:24)
[2022-12-21] MEDS: GABAPENTIN 300 MG CAPSULE PO SCH (22:05)
[2022-12-21] MEDS: MELATONIN 5 MG TABLETS PO SCH (22:05)
[2022-12-21] MEDS: THIAMINE HCL 100 MG TABLET (FP) PO SCH (22:05)
[2022-12-21] MEDS: chlordiazePOXIDE HCL 25 MG CAPSULE PO SCH (22:05)
[2022-12-22] MEDS: chlordiazePOXIDE HCL 25 MG CAPSULE PO SCH ×4 (05:35→22:31)
[2022-12-22] MEDS: GABAPENTIN 300 MG CAPSULE PO SCH ×3 (05:35→22:31)
[2022-12-22] MEDS: hydrOXYzine PAMOATE 25 MG CAPSULE (FP) PO PRN ×2 (07:42→19:33)
[2022-12-22] MEDS ORDERED: NICOTINE 14 MG/24 HOURS TOPICAL PATCH TD SCH (10:00)
[2022-12-22] MEDS: PRENATAL VITAMINS W/ FOLIC ACID TABLET (FP) PO SCH (10:03)
[2022-12-22] MEDS: METHOCARBAMOL 500 MG TABLET PO PRN ×2 (10:03→19:33)
[2022-12-22] MEDS: IBUPROFEN 600 MG TABLET (FP) PO PRN (10:03)
[2022-12-22 10:09] LABS: POTASSIUM 4.1 mmol/L (3.5-5.1)
[2022-12-22 10:16] LABS: HEMATOCRIT 43.5 % (35.4-49); HEMOGLOBIN 14.1 GM/dL (11.7-16.9); MCH 30.5 pg (25.7-33.7); MCHC 32.3 g/dl (32.0-35.9); MEAN CELL VOLUME 94.4 fl (80-96); MEAN PLT VOLUME 7.5 fl (7.5-11.1); PLATELET COUNT 274 10^3/uL (134-434); RBC 4.61 M/mm3 (4.00-5.60); WHITE BLOOD COUNT 8.1 K/mm3 (4.0-10.0)
[2022-12-22 10:20] LABS: BLOOD UREA NITROGEN 10.5 mg/dL (7-18); CALCIUM 9.6 mg/dL (8.5-10.1)
[2022-12-22 10:21] LABS: ALBUMIN 3.7 g/dl (3.4-5.0)
[2022-12-22 10:24] LABS: CREATININE 0.9 mg/dL (0.55-1.3)
[2022-12-22 10:25] LABS: BILIRUBIN,TOTAL 0.9 mg/dL (0.2-1); TOT PROT 7.6 g/dl (6.4-8.2)
[2022-12-22] MEDS ORDERED: COLLOIDAL OATMEAL 1 BAR EACH TP PRN (15:10)
[2022-12-22] MEDS: BICTEGRAV/EMTRICIT/TENOFOV (BIKTARVY) 50-200-25 MG TABLET PO SCH (15:54)
[2022-12-22] MEDS ORDERED: SUVOREXANT 5 MG TABLET PO PRN (22:00)
[2022-12-22] MEDS: MELATONIN 5 MG TABLETS PO SCH (22:31)
[2022-12-22] MEDS: THIAMINE HCL 100 MG TABLET (FP) PO SCH (22:31)
[2022-12-23] MEDS: chlordiazePOXIDE HCL 25 MG CAPSULE PO SCH ×4 (05:33→22:01)
[2022-12-23] MEDS: GABAPENTIN 300 MG CAPSULE PO SCH ×3 (05:34→22:00)
[2022-12-23] MEDS: IBUPROFEN 600 MG TABLET (FP) PO PRN ×2 (06:29→15:10)
[2022-12-23] MEDS: hydrOXYzine PAMOATE 25 MG CAPSULE (FP) PO PRN ×2 (07:51→13:06)
[2022-12-23] MEDS: BICTEGRAV/EMTRICIT/TENOFOV (BIKTARVY) 50-200-25 MG TABLET PO SCH (08:14)
[2022-12-23] MEDS: METHOCARBAMOL 500 MG TABLET PO PRN (10:03)
[2022-12-23] MEDS: PRENATAL VITAMINS W/ FOLIC ACID TABLET (FP) PO SCH ×2 (10:03→10:08)
[2022-12-23] MEDS: amLODIPine BESYLATE 10 MG TABLET (FP) PO SCH (10:05)
[2022-12-23] MEDS: HYDROCORTISONE 1% TOPICAL CREAM 30 GM TUBE TP PRN ×2 (10:05→22:03)
[2022-12-23] MEDS: NICOTINE 21 MG/24 HOURS TOPICAL PATCH TD PRN (11:33)
[2022-12-23] MEDS: THIAMINE HCL 100 MG TABLET (FP) PO SCH (22:00)
[2022-12-23] MEDS: MELATONIN 5 MG TABLETS PO SCH (22:01)
[2022-12-24] MEDS ORDERED: chlordiazePOXIDE HCL 10 MG CAPSULE PO PRN
[2022-12-24] MEDS: GABAPENTIN 300 MG CAPSULE PO SCH ×3 (05:42→22:05)
[2022-12-24] MEDS: chlordiazePOXIDE HCL 10 MG CAPSULE PO SCH ×4 (05:42→22:05)
[2022-12-24] MEDS: BICTEGRAV/EMTRICIT/TENOFOV (BIKTARVY) 50-200-25 MG TABLET PO SCH (07:39)
[2022-12-24] MEDS: amLODIPine BESYLATE 10 MG TABLET (FP) PO SCH (10:09)
[2022-12-24] MEDS: hydrOXYzine PAMOATE 25 MG CAPSULE (FP) PO PRN (10:10)
[2022-12-24] MEDS: PRENATAL VITAMINS W/ FOLIC ACID TABLET (FP) PO SCH (10:10)
[2022-12-24] MEDS: METHOCARBAMOL 500 MG TABLET PO PRN ×2 (10:11→17:35)
[2022-12-24] MEDS: IBUPROFEN 600 MG TABLET (FP) PO PRN (12:23)
[2022-12-24] MEDS: SUVOREXANT 10 MG TABLET PO PRN (22:05)
[2022-12-24] MEDS: THIAMINE HCL 100 MG TABLET (FP) PO SCH (22:05)
[2022-12-25] MEDS: chlordiazePOXIDE HCL 10 MG CAPSULE PO SCH ×2 (05:26→17:04)
[2022-12-25] MEDS: GABAPENTIN 300 MG CAPSULE PO SCH ×3 (05:27→21:17)
[2022-12-25] MEDS: METHOCARBAMOL 500 MG TABLET PO PRN (05:28)
[2022-12-25] MEDS: IBUPROFEN 600 MG TABLET (FP) PO PRN ×2 (05:28→10:30)
[2022-12-25] MEDS: BICTEGRAV/EMTRICIT/TENOFOV (BIKTARVY) 50-200-25 MG TABLET PO SCH (07:18)
[2022-12-25] MEDS: LACTULOSE 20 GM/30 ML UDC (FOR ORAL USE ONLY) PO SCH ×4 (10:10→21:17)
[2022-12-25] MEDS: PRENATAL VITAMINS W/ FOLIC ACID TABLET (FP) PO SCH (10:11)
[2022-12-25] MEDS: hydrOXYzine PAMOATE 25 MG CAPSULE (FP) PO PRN ×2 (10:11→18:31)
[2022-12-25] MEDS: amLODIPine BESYLATE 10 MG TABLET (FP) PO SCH (10:11)
[2022-12-25] MEDS: NICOTINE 21 MG/24 HOURS TOPICAL PATCH TD PRN (10:56)
[2022-12-25] MEDS: MAG HYDROX/AL HYDROX/SIMETH 30 ML UNIT-DOSE CUP PO PRN (11:26)
[2022-12-25] MEDS: THIAMINE HCL 100 MG TABLET (FP) PO SCH (21:17)
[2022-12-25] MEDS: SUVOREXANT 10 MG TABLET PO PRN (21:18)
[2022-12-26] MEDS ORDERED: chlordiazePOXIDE HCL 10 MG CAPSULE PO ONE (05:00)
[2022-12-26] MEDS: GABAPENTIN 300 MG CAPSULE PO SCH (05:32)
[2022-12-26] MEDS: IBUPROFEN 600 MG TABLET (FP) PO PRN (06:04)
[2022-12-26 06:22] VITALS: RESP 18
[2022-12-26] MEDS: BICTEGRAV/EMTRICIT/TENOFOV (BIKTARVY) 50-200-25 MG TABLET PO SCH (07:11)
[2022-12-26 08:55] VITALS: BP 133/83; PULSE 76; TEMP 97.2
[2022-12-26] MEDS: amLODIPine BESYLATE 10 MG TABLET (FP) PO SCH (09:36)
[2022-12-26] MEDS: PRENATAL VITAMINS W/ FOLIC ACID TABLET (FP) PO SCH (09:36)
[2022-12-26] MEDS: LACTULOSE 20 GM/30 ML UDC (FOR ORAL USE ONLY) PO SCH (09:36)
[2022-12-26] MEDS: METHOCARBAMOL 500 MG TABLET PO PRN (09:37)
[2022-12-26] MEDS: MAG HYDROX/AL HYDROX/SIMETH 30 ML UNIT-DOSE CUP PO PRN (11:09)
== END 2022-12-26 12:01 | disposition other institution (70) | DRG 774 ==
LOC: YASAS 17:01 → Y6N 20:41
PROVIDERS: ADMIT Allergy & Immunology; ATTEND Surgery
PROC: HZ2ZZZZ Detoxification Services for Substance Abuse Treatment (ICD-10-PCS; principal; 2022-12-21)
DX: F10.230 Alcohol dependence with withdrawal, uncomplicated (principal); F14.20 Cocaine dependence, uncomplicated; F17.210 Nicotine dependence, cigarettes, uncomplicated; F25.9 Schizoaffective disorder, unspecified; Z21 Asymptomatic human immunodeficiency virus [HIV] infection status; J45.20 Mild intermittent asthma, uncomplicated; L30.9 Dermatitis, unspecified; I10 Essential (primary) hypertension; R79.89 Other specified abnormal findings of blood chemistry; Z91.148 Patient's other noncompliance with medication regimen for other reason
CPT/HCPCS: 36415; 80053; 82140; 83036; 85027; 86780; 87635; 87811

== ENCOUNTER 2023-07-15 09:32 | Inpatient (IN) | payer OTHER ==
[2023-07-15 10:19] VITALS: BMI 29.1
[2023-07-15] MEDS ORDERED: MAGNESIUM HYDROX 2400MG/30ML ORAL SUSPENSION 30 ML CUP PO PRN (10:46)
[2023-07-15] MEDS ORDERED: LOPERAMIDE HCL 2 MG CAPSULE PO PRN (10:46)
[2023-07-15] MEDS ORDERED: NALOXONE HCL 0.4 MG/ML VIAL IM PRN (10:46)
[2023-07-15] MEDS ORDERED: POLYETHYLENE GLYCOL (HEALTHYLAX) 3350 17 GM PACKET PO PRN (10:46)
[2023-07-15] MEDS ORDERED: IBUPROFEN 600 MG TABLET (FP) PO PRN (10:46)
[2023-07-15] MEDS ORDERED: BISMUTH SUBSALICYLATE 524 MG/30 ML PO PRN (10:46)
[2023-07-15] MEDS ORDERED: BENZOCAINE/MENTHOL (CHLORASEPTIC ) LOZENGE MM PRN (10:46)
[2023-07-15] MEDS ORDERED: ACETAMINOPHEN 325 MG TABLET (FP) PO PRN (10:46)
[2023-07-15] MEDS ORDERED: IBUPROFEN 400 MG TABLET (FP) PO PRN (10:46)
[2023-07-15] MEDS ORDERED: guaiFENesin 600 MG TABLET.ER (FP) PO PRN (10:46)
[2023-07-15] MEDS ORDERED: NICOTINE POLACRILEX 2 MG GUM BUC PRN (10:46)
[2023-07-15] MEDS ORDERED: MAG HYDROX/AL HYDROX/SIMETH 30 ML UNIT-DOSE CUP PO PRN (10:46)
[2023-07-15] MEDS ORDERED: BENZONATATE 200 MG CAPSULE PO PRN (10:46)
[2023-07-15] MEDS ORDERED: NALOXONE HCL (KLOXXADO) 8 MG SPRAY NS PRN (10:46)
[2023-07-15] MEDS: METHOCARBAMOL 500 MG TABLET PO PRN (11:25)
[2023-07-15] MEDS: ONDANSETRON *ODT* 4 MG TABLET SL PRN (11:25)
[2023-07-15] MEDS ORDERED: METHOCARBAMOL 500 MG TABLET ONE (11:26)
[2023-07-15] MEDS ORDERED: ONDANSETRON *ODT* 4 MG TABLET ONE (11:27)
[2023-07-15] MEDS ORDERED: COLLOIDAL OATMEAL 1 BAR EACH TP PRN (12:28)
[2023-07-15] MEDS: chlordiazePOXIDE HCL 25 MG CAPSULE PO PRN (13:16)
[2023-07-15] MEDS: HYDROCORTISONE 0.5% TOPICAL CREAM 30 GM TUBE TP SCH (15:51)
[2023-07-15] MEDS ORDERED: ALBUTEROL SO4 HFA INHALER IH PRN (15:58)
[2023-07-15] MEDS: chlordiazePOXIDE HCL 25 MG CAPSULE PO SCH (17:26)
[2023-07-15] MEDS ORDERED: MELATONIN 5 MG TABLETS PO SCH (22:00)
[2023-07-15] MEDS: THIAMINE HCL 100 MG TABLET (FP) PO SCH (22:06)
[2023-07-15] MEDS: SUVOREXANT 10 MG TABLET PO PRN (22:08)
[2023-07-16] MEDS: amLODIPine BESYLATE 10 MG TABLET (FP) PO SCH (10:10)
[2023-07-16] MEDS: BICTEGRAV/EMTRICIT/TENOFOV (BIKTARVY) 50-200-25 MG TABLET PO SCH (10:10)
[2023-07-16] MEDS: PRENATAL VITAMINS W/ FOLIC ACID TABLET (FP) PO SCH (10:10)
[2023-07-16] MEDS: hydrOXYzine PAMOATE 25 MG CAPSULE (FP) PO PRN (10:14)
[2023-07-16] MEDS: NICOTINE 21 MG/24 HOURS TOPICAL PATCH TD SCH (10:15)
[2023-07-16 11:37] LABS: HEMATOCRIT 42.1 % (35.4-49); HEMOGLOBIN 13.9 GM/dL (11.7-16.9); MEAN CELL VOLUME 94.1 fl (80-96); MEAN PLT VOLUME 7.9 fl (7.5-11.1); PLATELET COUNT 275 10^3/uL (134-434); RBC 4.47 M/mm3 (4.00-5.60); RDW 13.5 % (11.9-15.9); WHITE BLOOD COUNT 8.2 K/mm3 (4.0-10.0)
[2023-07-16 11:38] LABS: POTASSIUM 4.4 mmol/L (3.5-5.1)
[2023-07-16 11:45] LABS: CALCIUM 9.4 mg/dL (8.5-10.1)
[2023-07-16 11:46] LABS: ALBUMIN 3.5 g/dl (3.4-5.0); BLOOD UREA NITROGEN 10.8 mg/dL (7-18)
[2023-07-16 11:47] LABS: CREATININE 0.9 mg/dL (0.55-1.3)
[2023-07-16 11:49] LABS: BILIRUBIN,TOTAL 0.6 mg/dL (0.2-1); TOT PROT 8.1 g/dl (6.4-8.2)
[2023-07-16] MEDS: HYDROCORTISONE 1% TOPICAL CREAM 30 GM TUBE TP SCH (13:47)
[2023-07-16] MEDS: PSYLLIUM 5.85 GM PACKET PO SCH (15:44)
[2023-07-17] MEDS: chlordiazePOXIDE HCL 25 MG CAPSULE PO SCH (05:23)
[2023-07-17] MEDS: PSYLLIUM 5.85 GM PACKET PO SCH (13:21)
[2023-07-18] MEDS: chlordiazePOXIDE HCL 10 MG CAPSULE PO SCH (05:21)
[2023-07-18] MEDS: GABAPENTIN 300 MG CAPSULE PO SCH (13:07)
[2023-07-18] MEDS: chlordiazePOXIDE HCL 10 MG CAPSULE PO PRN (13:37)
[2023-07-18] MEDS: SUVOREXANT 10 MG TABLET PO ONE (22:28)
[2023-07-19] MEDS: chlordiazePOXIDE HCL 10 MG CAPSULE PO SCH (05:25)
[2023-07-19] MEDS ORDERED: LACTULOSE 20 GM/30 ML UDC (FOR ORAL USE ONLY) PO SCH (12:30)
[2023-07-19 13:50] VITALS: BP 111/63; PULSE 90; RESP 18; TEMP 98.1
[2023-07-19] MEDS ORDERED: SUVOREXANT 10 MG TABLET PO PRN ×2 (22:00)
[2023-07-20] MEDS ORDERED: chlordiazePOXIDE HCL 10 MG CAPSULE PO ONE (05:00)
== END 2023-07-19 12:55 | disposition other institution (70) | DRG 774 ==
LOC: YASAS 09:32 → Y6N 11:06
PROVIDERS: ADMIT Allergy & Immunology; ATTEND Surgery
PROC: HZ2ZZZZ Detoxification Services for Substance Abuse Treatment (ICD-10-PCS; principal; 2023-07-14)
DX: F10.230 Alcohol dependence with withdrawal, uncomplicated (principal); F14.20 Cocaine dependence, uncomplicated; F17.210 Nicotine dependence, cigarettes, uncomplicated; F19.282 Other psychoactive substance dependence with psychoactive substance-induced sleep disorder; F19.24 Other psychoactive substance dependence with psychoactive substance-induced mood disorder; F39 Unspecified mood [affective] disorder; Z21 Asymptomatic human immunodeficiency virus [HIV] infection status; E72.20 Disorder of urea cycle metabolism, unspecified; G47.00 Insomnia, unspecified; G62.9 Polyneuropathy, unspecified; I10 Essential (primary) hypertension; J45.20 Mild intermittent asthma, uncomplicated; K59.00 Constipation, unspecified; M54.50 Low back pain, unspecified; G89.29 Other chronic pain
CPT/HCPCS: 36415; 80053; 80307; 82140; 85027; 86780; 87635; Q0162

== ENCOUNTER 2023-07-19 13:02 | Inpatient (IN) | payer OTHER ==
[2023-07-19] MEDS ORDERED: NALOXONE HCL (KLOXXADO) 8 MG SPRAY NS PRN (14:51)
[2023-07-19] MEDS ORDERED: MAG HYDROX/AL HYDROX/SIMETH 30 ML UNIT-DOSE CUP PO PRN (14:51)
[2023-07-19] MEDS ORDERED: BENZOCAINE/MENTHOL (CHLORASEPTIC ) LOZENGE MM PRN (14:51)
[2023-07-19] MEDS ORDERED: POLYETHYLENE GLYCOL (HEALTHYLAX) 3350 17 GM PACKET PO PRN (14:51)
[2023-07-19] MEDS ORDERED: guaiFENesin 600 MG TABLET.ER (FP) PO PRN (14:51)
[2023-07-19] MEDS ORDERED: BENZONATATE 200 MG CAPSULE PO PRN (14:51)
[2023-07-19] MEDS ORDERED: NALOXONE HCL 0.4 MG/ML VIAL IVPUSH PRN (14:51)
[2023-07-19] MEDS ORDERED: ACETAMINOPHEN 325 MG TABLET (FP) PO PRN (14:51)
[2023-07-19] MEDS ORDERED: LOPERAMIDE HCL 2 MG CAPSULE PO PRN (14:51)
[2023-07-19] MEDS ORDERED: ALBUTEROL SO4 HFA INHALER IH PRN (14:53)
[2023-07-19] MEDS: hydrOXYzine PAMOATE 25 MG CAPSULE (FP) PO PRN (16:56)
[2023-07-19] MEDS: LACTULOSE 20 GM/30 ML UDC (FOR ORAL USE ONLY) PO SCH (16:59)
[2023-07-19] MEDS: THIAMINE HCL 100 MG TABLET (FP) PO SCH (21:17)
[2023-07-19] MEDS: METHOCARBAMOL 500 MG TABLET PO PRN (21:17)
[2023-07-19] MEDS: MELATONIN 5 MG TABLETS PO SCH (21:18)
[2023-07-19] MEDS: GABAPENTIN 300 MG CAPSULE PO SCH (21:18)
[2023-07-20] MEDS: BICTEGRAV/EMTRICIT/TENOFOV (BIKTARVY) 50-200-25 MG TABLET PO SCH (07:12)
[2023-07-20] MEDS: NICOTINE 21 MG/24 HOURS TOPICAL PATCH TD SCH (10:30)
[2023-07-20] MEDS: PRENATAL VITAMINS W/ FOLIC ACID TABLET (FP) PO SCH (10:30)
[2023-07-20] MEDS: POLYETHYLENE GLYCOL (HEALTHYLAX) 3350 17 GM PACKET PO SCH (10:31)
[2023-07-20] MEDS: amLODIPine BESYLATE 10 MG TABLET (FP) PO SCH (10:31)
[2023-07-20] MEDS: HYDROCORTISONE 1% TOPICAL CREAM 30 GM TUBE TP SCH (10:31)
[2023-07-20] MEDS: IBUPROFEN 600 MG TABLET (FP) PO PRN (13:22)
[2023-07-21] MEDS: IBUPROFEN 400 MG TABLET (FP) PO PRN (15:40)
[2023-07-21] MEDS: SUVOREXANT 10 MG TABLET PO PRN (21:25)
[2023-07-23] MEDS: SUVOREXANT 10 MG TABLET PO PRN (21:02)
[2023-07-24] MEDS: AMMONIUM LACTATE 12% LOTION 225 GM BOTTLE TP PRN (06:09)
[2023-07-27] MEDS: SUVOREXANT 10 MG TABLET PO PRN (21:31)
[2023-07-29] MEDS: SUVOREXANT 10 MG TABLET PO PRN (21:05)
[2023-07-30] MEDS: METHOCARBAMOL 500 MG TABLET PO PRN (21:05)
[2023-08-03] MEDS: SUVOREXANT 10 MG TABLET PO PRN (21:23)
[2023-08-05] MEDS ORDERED: MINERAL OIL/PETROLAT/WATER TOPICAL CREAM 454 GM JAR TP PRN (10:39)
[2023-08-05] MEDS: CLINDAMYCIN PHOSPHATE 1% TOPICAL GEL 30 GM TUBE TP SCH (13:00)
[2023-08-06] MEDS: SUVOREXANT 10 MG TABLET PO PRN (21:31)
[2023-08-08] MEDS: SODIUM CHLORIDE NASAL SPRAY 44 ML BOTTLE NS PRN (06:48)
[2023-08-08] MEDS: SUVOREXANT 10 MG TABLET PO PRN (21:35)
[2023-08-12] MEDS: NALTREXONE HCL 50 MG TABLET PO SCH (13:06)
[2023-08-13 06:52] VITALS: TEMP 97.5
[2023-08-13] MEDS: MAGNESIUM HYDROX 2400MG/30ML ORAL SUSPENSION 30 ML CUP PO PRN (21:24)
[2023-08-13] MEDS: MELATONIN 5 MG TABLETS PO ONE (21:32)
[2023-08-14] MEDS: SUVOREXANT 10 MG TABLET PO PRN (21:01)
[2023-08-15] MEDS: NALTREXONE MICROSPHERES (VIVITROL) 380 MG DISP.SYRIN IM ONE (06:11)
[2023-08-15 06:43] VITALS: BP 135/69; PULSE 76; RESP 17
== END 2023-08-15 09:02 | disposition home or self-care (01) | DRG 772 ==
LOC: YASAS 13:02 → Y3W 13:03
PROVIDERS: ADMIT Allergy & Immunology; ATTEND Psychiatry & Neurology Pain Medicine
PROC: HZ42ZZZ Group Counseling for Substance Abuse Treatment, Cognitive-Behavioral (ICD-10-PCS; principal; 2023-07-19)
DX: F10.20 Alcohol dependence, uncomplicated (principal); F14.20 Cocaine dependence, uncomplicated; F17.210 Nicotine dependence, cigarettes, uncomplicated; F19.282 Other psychoactive substance dependence with psychoactive substance-induced sleep disorder; F19.24 Other psychoactive substance dependence with psychoactive substance-induced mood disorder; F41.9 Anxiety disorder, unspecified; F32.A Depression, unspecified; Z21 Asymptomatic human immunodeficiency virus [HIV] infection status; I10 Essential (primary) hypertension; J45.20 Mild intermittent asthma, uncomplicated; L85.3 Xerosis cutis; L02.821 Furuncle of head [any part, except face]; M62.838 Other muscle spasm; M54.50 Low back pain, unspecified; G89.29 Other chronic pain; R79.89 Other specified abnormal findings of blood chemistry; Z20.828 Contact with and (suspected) exposure to other viral communicable diseases
CPT/HCPCS: 0241U-QW; 82140; J2315